=== PATIENT | female | born 1930 | race Caucasian/White ===

== ENCOUNTER 2016-09-13 13:20 | Inpatient (IN) | payer MEDICARE, OTHER ==
[2016-09-13] MEDS ORDERED: SODIUM CHLORIDE 0.9% 1,000 ML IV STA ×2 (13:27)
--- NOTE | 2016-09-13 13:38 | ED ---
General Adult HPI - General Stated complaint: ALTERED MENTAL STATUS Time Seen by Provider: 09/13/16 13:22 Source: RN notes reviewed, old records reviewed - History of Present Illness Initial comments: This is an 85-year-old female the ER for evaluation. Patient presents today for evaluation of other mental status, difficulty with speaking, dysphagia. Patient has no prior history of CVA. Symptoms started when she woke this morning, patient was seen by her caregiver John mckinney and then tried to reassess her situation. She still had difficulty with speaking, called family doctor sent her to the ER for evaluation. No trauma. Patient denies headache. No other neurological complaints - Related Data Home Medications Medication Instructions Recorded Confirmed Raloxifene [Evista] 60 mg PO DAILY 09/25/14 09/13/16 Alendronate Sodium [Alendronate 70 mg PO CONTRERAS 09/13/16 09/13/16 Sodium] Allergies Allergy/AdvReac Type Severity Reaction Status Date / Time monosodium glutamate [MSG] AdvReac Nausea & Verified 09/13/16 14:15 Vomiting Sulfa (Sulfonamide AdvReac Nausea Verified 09/13/16 14:15 Antibiotics) environmental Allergy Unknown Uncoded 09/26/14 10:54 Review of Systems ROS Statement: Those systems with pertinent positive or pertinent negative responses have been documented in the HPI. ROS Other: All systems not noted in ROS Statement are negative. Past Medical History Additional Past Medical History / Comment(s): Glaucoma; osteoporosis History of Any Multi-Drug Resistant Organisms: None Reported Additional Past Surgical History / Comment(s): cyst removed Past Psychological History: No Psychological Hx Reported Smoking Status: Former smoker Past Alcohol Use History: None Reported Past Drug Use History: None Reported General Exam - General Exam Comments Initial Comments: NIH of 2, some expressive aphasia General appearance: alert, in no apparent distress Head exam: Present: atraumatic, normocephalic, normal inspection Eye exam: Present: normal appearance, PERRL, EOMI. Absent: scleral icterus, conjunctival injection, periorbital swelling ENT exam: Present: normal exam, mucous membranes moist Neck exam: Present: normal inspection. Absent: tenderness, meningismus, lymphadenopathy Respiratory exam: Present: normal lung sounds bilaterally. Absent: respiratory distress, wheezes, rales, rhonchi, stridor Cardiovascular Exam: Present: regular rate, normal rhythm, normal heart sounds. Absent: systolic murmur, diastolic murmur, rubs, gallop, clicks GI/Abdominal exam: Present: soft, normal bowel sounds. Absent: distended, tenderness, guarding, rebound, rigid Extremities exam: Present: normal inspection, full ROM, normal capillary refill. Absent: tenderness, pedal edema, joint swelling, calf tenderness Back exam: Present: normal inspection Neurological exam: Present: alert, oriented X3, CN II-XII intact Psychiatric exam: Present: normal affect, normal mood Skin exam: Present: warm, dry, intact, normal color. Absent: rash Course Vital Signs 09/13/16 13:54 Temperature 98.9 F Pulse Rate 88 Respiratory 16 Rate Blood Pressure 164/85 O2 Sat by Pulse 92 L Oximetry - Reevaluation(s) Reevaluation #1: 09/13/16 15:26 Patient's neurological symptoms wax and wane, and a still 2, able to talk and expressed without difficulty but then some words that she suffers with Reevaluation #2: 09/13/16 15:27 Patient is not a candidate for TPA secondary to time EKG Findings - EKG Comments: EKG Findings:: EKG shows normal sinus rhythm rate of 90, DE 168, QRS 82, QTC 440 Medical Decision Making - Medical Decision Making A5 female ER for evaluation of altered mental status, expressive aphasia, CVA, NIH of 2, patient be admitted for neurological evaluation and treatment. - Lab Data Result diagrams: 09/13/16 14:00 09/13/16 14:00 Lab Results 09/13/16 09/13/16 09/13/16 Range/Units 13:42 14:00 14:00 WBC 6.2 (3.8-10.6) k/uL RBC 4.94 (3.80-5.40) m/uL Hgb 15.5 (11.4-16.0) gm/dL Hct 45.7 (34.0-46.0) % MCV 92.5 (80.0-100.0) fL MCH 31.5 (25.0-35.0) pg MCHC 34.0 (31.0-37.0) g/dL RDW 13.4 (11.5-15.5) % Plt Count 132 L (150-450) k/uL Neutrophils % 77 % Lymphocytes % 16 % Monocytes % 4 % Eosinophils % 1 % Basophils % 0 % Neutrophils # 4.8 (1.3-7.7) k/uL Lymphocytes # 1.0 (1.0-4.8) k/uL Monocytes # 0.3 (0-1.0) k/uL Eosinophils # 0.1 (0-0.7) k/uL Basophils # 0.0 (0-0.2) k/uL PT (9.0-12.0) sec INR (<1.2) APTT (22.0-30.0) sec Sodium (137-145) mmol/L Potassium (3.5-5.1) mmol/L Chloride (98-107) mmol/L Carbon Dioxide (22-30) mmol/L Anion Gap mmol/L BUN (7-17) mg/dL Creatinine (0.52-1.04) mg/dL Est GFR (MDRD) Af Amer (>60 ml/min/1.73 sqM) Est GFR (MDRD) Non-Af (>60 ml/min/1.73 sqM) Glucose (74-99) mg/dL Calcium (8.4-10.2) mg/dL Phosphorus (2.5-4.5) mg/dL Magnesium (1.6-2.3) mg/dL Total Bilirubin (0.2-1.3) mg/dL AST (14-36) U/L ALT (9-52) U/L Alkaline Phosphatase (38-126) U/L Total Creatine Kinase 60 (30-135) U/L CK-MB (CK-2) 1.5 (0.0-2.4) ng/mL CK-MB (CK-2) Rel Index 2.5 Troponin I <0.012 (0.000-0.034) ng/mL Total Protein (6.3-8.2) g/dL Albumin (3.5-5.0) g/dL Urine Color Colorless Urine Appearance Clear (Clear) Urine pH 7.5 (5.0-8.0) Ur Specific Stigler 1.001 (1.001-1.035) Urine Protein Negative (Negative) Urine Glucose (UA) Negative (Negative) Urine Ketones 1+ H (Negative) Urine Blood Small H (Negative) Urine Nitrite Negative (Negative) Urine Bilirubin Negative (Negative) Urine Urobilinogen <2.0 (<2.0) mg/dL Ur Leukocyte Esterase Negative (Negative) Urine RBC 1 (0-5) /hpf Urine WBC <1 (0-5) /hpf 09/13/16 09/13/16 Range/Units 14:00 14:00 WBC (3.8-10.6) k/uL RBC (3.80-5.40) m/uL Hgb (11.4-16.0) gm/dL Hct (34.0-46.0) % MCV (80.0-100.0) fL MCH (25.0-35.0) pg MCHC (31.0-37.0) g/dL RDW (11.5-15.5) % Plt Count (150-450) k/uL Neutrophils % % Lymphocytes % % Monocytes % % Eosinophils % % Basophils % % Neutrophils # (1.3-7.7) k/uL Lymphocytes # (1.0-4.8) k/uL Monocytes # (0-1.0) k/uL Eosinophils # (0-0.7) k/uL Basophils # (0-0.2) k/uL PT 10.8 (9.0-12.0) sec INR 1.1 (<1.2) APTT 23.1 (22.0-30.0) sec Sodium 141 (137-145) mmol/L Potassium 4.1 (3.5-5.1) mmol/L Chloride 102 (98-107) mmol/L Carbon Dioxide 32 H (22-30) mmol/L Anion Gap 7 mmol/L BUN 10 (7-17) mg/dL Creatinine 0.55 (0.52-1.04) mg/dL Est GFR (MDRD) Af Amer >60 (>60 ml/min/1.73 sqM) Est GFR (MDRD) Non-Af >60 (>60 ml/min/1.73 sqM) Glucose 98 (74-99) mg/dL Calcium 9.4 (8.4-10.2) mg/dL Phosphorus 3.1 (2.5-4.5) mg/dL Magnesium 1.7 (1.6-2.3) mg/dL Total Bilirubin 1.6 H (0.2-1.3) mg/dL AST 38 H (14-36) U/L ALT 37 (9-52) U/L Alkaline Phosphatase 33 L (38-126) U/L Total Creatine Kinase (30-135) U/L CK-MB (CK-2) (0.0-2.4) ng/mL CK-MB (CK-2) Rel Index Troponin I (0.000-0.034) ng/mL Total Protein 7.0 (6.3-8.2) g/dL Albumin 4.4 (3.5-5.0) g/dL Urine Color Urine Appearance (Clear) Urine pH (5.0-8.0) Ur Specific Stigler (1.001-1.035) Urine Protein (Negative) Urine Glucose (UA) (Negative) Urine Ketones (Negative) Urine Blood (Negative) Urine Nitrite (Negative) Urine Bilirubin (Negative) Urine Urobilinogen (<2.0) mg/dL Ur Leukocyte Esterase (Negative) Urine RBC (0-5) /hpf Urine WBC (0-5) /hpf - Radiology Data Radiology results: report reviewed (CT brain and chest x-ray negative for acute disease), image reviewed Disposition Clinical Impression: CVA (cerebral vascular accident) Disposition: ADMITTED IP TO THIS [facility] Condition: Serious Referrals: Armando Zheng MD [Primary Care Provider] - 1-2 days
[2016-09-13 14:05] LABS: Appearance,Urine Clear (Clear); Bilirubin,Urine Negative (Negative); Glucose,Urine (UA) Negative (Negative); Ketones,Urine 1+ (Negative); Leukocyte Esterase,Urine Negative (Negative); Nitrite,Urine Negative (Negative); PH, Urine 7.5 (5.0-8.0); Particle Count 218; Protein,Urine Negative (Negative); RBC,Urine 1 /hpf (0-5); Specific Gravity,Urine 1.001 (1.001-1.035); UA Billing (MACRO vs. MICRO) MICRO; Urobilinogen,Urine <2.0 mg/dL (<2.0); WBC,Urine <1 /hpf (0-5)
[2016-09-13 14:11] LABS: Basophils % (A) 0 %; CH 30.5; CHCM 33.1; Eosinophils # (A) 0.1 k/uL (0-0.7); Eosinophils % (A) 1 %; HCT 45.7 % (34.0-46.0); HDW 2.43; HGB 15.5 gm/dL (11.4-16.0); Luc % (Auto) 2; Lymphocytes % (A) 16 %; MCH 31.5 pg (25.0-35.0); MCV 92.5 fL (80.0-100.0); Mean Platelet Volume 7.5; Monocytes # (A) 0.3 k/uL (0-1.0); Monocytes % (A) 4 %; Neutrophils # (A) 4.8 k/uL (1.3-7.7); Neutrophils % (A) 77 %; RBC 4.94 m/uL (3.80-5.40); RDW 13.4 % (11.5-15.5); WBC 6.2 k/uL (3.8-10.6); WBC (Perox) 6.19
[2016-09-13 14:26] LABS: INR 1.1 (<1.2); Partial Thromboplastin Time 23.1 sec (22.0-30.0); Prothrombin Time 10.8 sec (9.0-12.0)
[2016-09-13 14:30] LABS: ALT 37 U/L (9-52); AST 38 U/L (14-36); Alkaline Phosphatase 33 U/L (38-126); Anion Gap 7 mmol/L; Blood Urea Nitrogen 10 mg/dL (7-17); Calcium 9.4 mg/dL (8.4-10.2); Carbon Dioxide 32 mmol/L (22-30); Chloride 102 mmol/L (98-107); Glucose 98 mg/dL (74-99); Magnesium 1.7 mg/dL (1.6-2.3); Non-African American GFR(MDRD) >60 (>60 ml/min/1.73 sqM); Phosphorous 3.1 mg/dL (2.5-4.5); Potassium 4.1 mmol/L (3.5-5.1); Sodium 141 mmol/L (137-145); Total Bilirubin 1.6 mg/dL (0.2-1.3)
[2016-09-13 14:34] LABS: Creatine Kinase 60 U/L (30-135)
[2016-09-13 14:47] LABS: Creatine Kinase MB 1.5 ng/mL (0.0-2.4); Troponin I <0.012 ng/mL (0.000-0.034)
--- NOTE | 2016-09-13 14:58 | XR ---
EXAMINATION TYPE: XR chest 2V DATE OF EXAM: 09/13/2016 COMPARISON: NONE HISTORY: Shortness of breath TECHNIQUE: Frontal and lateral views of the chest are obtained. FINDINGS: Scattered senescent parenchymal changes noted. Hyperinflation compatible with COPD. No evidence for infiltrate. No evidence for atelectasis. Heart size is stable. Mediastinal structures are stable and grossly unremarkable. No evidence for hilar prominence. Degenerative changes dorsal spine. IMPRESSION: 1. No evidence for acute pulmonary disease.
[2016-09-13] MEDS ORDERED: ASPIRIN 325 MG TAB PO STA (15:00)
--- NOTE | 2016-09-13 16:11 | CT ---
EXAMINATION TYPE: CT brain wo con DATE OF EXAM: 09/13/2016 HISTORY: LOTT and difficulty speaking. CT DLP: 998.9 mGycm. Automated Exposure Control for Dose Reduction was Utilized. TECHNIQUE: CT scan of the head is performed without contrast. COMPARISON: None. FINDINGS: There is no acute intracranial hemorrhage or midline shift identified. There is diffuse v entricular and sulcal prominence consistent with diffuse age-related cerebral atrophy. There is low- attenuation in the periventricular white matter consistent with chronic small vessel ischemic change. The globes are intact and the visualized sinuses are clear. IMPRESSION: No acute intracranial hemorrhage or midline shift. There is mild to moderate diffuse ag e-related cerebral atrophy and chronic small vessel ischemic change noted. If clinical concern for acute stroke persists further investigation with MRI study may be warranted.
--- NOTE | 2016-09-13 16:41 | US ---
EXAMINATION TYPE: US carotid duplex BILAT DATE OF EXAM: 09/13/2016 COMPARISON: NONE CLINICAL HISTORY: Stenosis. Altered mental status EXAM MEASUREMENTS: RIGHT: Peak Systolic Velocity (PSV) cm/sec ----- Right CCA: 85.7 ----- Right ICA: 93.1 ----- Right ECA: 102.1 ICA/CCA ratio: 1.1 RIGHT: End Diastole cm/sec ----- Right CCA: 11.5 ----- Right ICA: 19.3 ----- Right ECA: 6.3 LEFT: Peak Systolic Velocity (PSV) cm/sec ----- Left CCA: 85.6 ----- Left ICA: 120.0 ----- Left ECA: 169.4 ICA/CCA ratio: 1.4 LEFT: End Diastole cm/sec ----- Left CCA: 8.7 ----- Left ICA: 23.5 ----- Left ECA: 9.1 VERTEBRALS (direction of flow): Right Vertebral: Antegrade Left Vertebral: Antegrade Mild plaque noted bilaterally. Increased velocities left ECA IMPRESSION: There is antegrade flow in the vertebral arteries. The images and measurements suggest 4 0-50% stenosis in both internal carotid arteries. Criteria for Assigning % of Stenosis / Diameter reduction (Estimation based on the indirect measurements of the internal carotid artery velocities (ICA PSV). 1. Normal (no stenosis)=ICA PSV < 125 cm/s: ratio < 2.0: ICA EDV<40 cm/s. 2. Less than 50% stenosis=ICA PSV < 125 cm/s: ratio < 2.0: ICA EDV<40 cm/s. 3. 50 to 69% stenosis=ICA PSV of 125 to 230 cm/s: ration 2.0 ? 4.0: ICA EDV 40-100 cm/s. 4. Greater than 70% stenosis to near occlusion= ICA PSV > 230 cm/s: ratio > 4.0: ICA EDV > 100 cm/s. 5. Near occlusion= ICA PSV velocities may be low or undetectable: variable ratio and ICA EDV. 6. Total occlusion=unable to detect flow.
[2016-09-13] MEDS ORDERED: ENALAPRILAT 1.25 MG/ML 1 ML VIAL IVP PRN (18:24)
--- NOTE | 2016-09-13 18:39 | P.HPIM ---
History of Present Illness H&P Date: 09/13/16 Chief Complaint: CVA/TIA, expression aphasia, elevated blood pressure, hyperlipidemia, sever 85-year-old female one of my office patient of known for last 15 years with known to have advanced osteoporosis severe osteoarthritis and chronic lower back pain severe debilitated from her back condition for the last 20 years could not tolerate many osteoporosis age and the past has been doing well on Fosamax and calcium with vitamin D. Patient is under a lot of stress lately still independent and [facility] with [facility] other neighbor she had a main entrance on. Everybody's working to create and build ramp for the building except 1 neighbor 1 to do more patient has been under a lot of stress through this. Patient apparently has loss her caregiver and higher new one was in today for the first time to see her patient had extremely difficult time expressing herself and finding the right word was slightly but confused and had significant change mental status the caregiver with the current finding decided to bring her to demurs department at [facility] were was seen and evaluated continue to have significant expression aphasia with the current problem was diagnosed with CVA/ TIA decided to admit patient to the hospital CAT scan of the brain showed small vessel disease only her blood pressure was slightly bit elevated initially but no other finding was found. No metabolic problem including UTI or pneumonitis no hypoxia or anything to explain that change mental status. Review of Systems Constitutional: Reports anorexia, Reports chronic pain, Reports daytime sleepiness, Reports fatigue, Reports lethargy, Reports poor appetite, Reports weakness, Reports weight loss, Denies as per HPI, Denies chills, Denies chronic headaches, Denies fever, Denies malaise, Denies night sweats, Denies sweats, Denies weight gain Eyes: bilateral as per HPI Ears: bilateral: decreased hearing Ears, nose, mouth and throat: Reports ant. neck pain, Reports nasal congestion, Reports sinus pain, Reports sinus pressure, Denies as per HPI, Denies bleeding gums, Denies dental pain, Denies dysphagia, Denies epistaxis, Denies headache, Denies hoarseness, Denies mouth pain, Denies nasal discharge, Denies neck fullness/pressure, Denies neck lump, Denies nose pain, Denies odynophagia, Denies post-nasal drip, Denies swelling in mouth, Denies swelling in throat, Denies sore throat, Denies vertigo, Denies voice changes Cardiovascular: Reports dyspnea on exertion, Reports edema, Reports high blood pressure, Reports orthopnea, Reports paroxysmal nocturnal dyspnea, Denies as per HPI, Denies chest pain, Denies claudication, Denies decreased exercise tolerance, Denies irregular heart beat, Denies leg edema, Denies lightheadedness , Denies palpitations, Denies phlebitis, Denies rapid heart beat, Denies shortness of breath, Denies syncope Respiratory: Reports congestion, Reports dyspnea, Reports wheezing, Denies as per HPI, Denies cough, Denies cough with sputum, Denies excessive sputum, Denies hemoptysis, Denies home oxygen, Denies pain, Denies pain on inspiration, Denies pleurisy, Denies respiratory infections, Denies sleep apnea, Denies snoring Gastrointestinal: Reports bloating, Reports early satiety, Reports indigestion, Reports nausea, Denies as per HPI, Denies abdominal pain, Denies belching, Denies BRBPR, Denies change in bowel habits, Denies coffee ground emesis, Denies constipation, Denies diarrhea, Denies dyspepsia, Denies excessive gas, Denies heartburn, Denies hematemesis, Denies hematochezia, Denies jaundice, Denies lactose intolerance, Denies loss of appetite, Denies melena, Denies vomiting Genitourinary: Reports stress incontinence, Denies as per HPI, Denies abnormal vaginal bleeding, Denies decreased libido, Denies difficulty conceiving, Denies difficulty voiding, Denies dysmenorrhea, Denies dyspareunia, Denies dysuria, Denies flank pain, Denies genital sores, Denies hematuria, Denies hot flashes, Denies incomplete emptying, Denies kidney stones, Denies menorrhagia, Denies mixed incontinence, Denies nocturia, Denies pelvic pain, Denies post void dribbling, Denies , Denies prolapse symptoms, Denies urge incontinence, Denies urgency, Denies urinary frequency, Denies vaginal discharge, Denies vaginal dryness, Denies vaginal itching, Denies vaginal odor Musculoskeletal: Reports gait dysfunction, Reports leg numbness/tingling, Reports limitation of motion, Reports loss of height, Reports low back pain, Reports morning stiffness, Reports neck pain, Reports neck stiffness, Denies as per HPI, Denies arm numbness/tingling, Denies atrophy, Denies fractures, Denies frequent falls, Denies hot joints, Denies muscle cramps, Denies muscle weakness , Denies myalgias, Denies prior amputations, Denies redness of joints, Denies shooting arm pain, Denies shooting leg pain Musculoskeletal: bilateral: ankle pain Integumentary: Denies as per HPI, Denies acne, Denies boils, Denies brittle nails, Denies change in hair/nails, Denies color changes, Denies darkening of skin, Denies depigmentation, Denies dryness, Denies foot/leg ulcers, Denies growths, Denies hirsutism, Denies lesions, Denies onychomycosis, Denies pruritus , Denies rash, Denies sores, Denies striae, Denies unusual bruising, Denies wounds Neurological: Reports aphasia, Reports ataxia, Reports change in mentation, Reports gait dysfunction, Reports paresthesias, Reports spasticity, Reports weakness, Denies as per HPI, Denies balance difficulties, Denies burning pain, Denies change in smell/taste, Denies change in speech, Denies confusion, Denies convulsions, Denies double vision, Denies head injury, Denies headaches, Denies hearing difficulties, Denies lack of coordination, Denies loss of vision, Denies memory loss, Denies migraines, Denies motor disturbance, Denies numbness , Denies paralysis, Denies seizures, Denies sensory deficit, Denies syncope, Denies tic, Denies tingling, Denies transient paralysis, Denies tremors, Denies vertigo, Denies visual changes Psychiatric: Reports anhedonia, Reports anxiety, Reports depression, Reports sadness/tearfulness, Denies as per HPI, Denies anxiety attacks, Denies change in appetite, Denies change in libido, Denies change in sleep habits, Denies confusion, Denies difficulty concentrating, Denies disorientation, Denies hallucinations, Denies hopelessness, Denies hypersomnia, Denies insomnia, Denies irritability, Denies memory loss, Denies mood swings, Denies paranoia, Denies sleep disturbances, Denies suicidal ideation Endocrine: Reports cold intolerance, Reports fatigue, Reports heat intolerance, Denies as per HPI, Denies deepening of the voice, Denies excessive sweating, Denies excessive thirst, Denies flushing, Denies high blood sugars, Denies increase in ring/shoe/hat size, Denies low blood sugars, Denies nocturia, Denies palpitations, Denies polydipsia, Denies polyphagia, Denies polyuria, Denies proptosis, Denies recent glucocorticoid use, Denies thyroid mass, Denies weight change Hematologic/Lymphatic: Reports easy bruising, Denies as per HPI, Denies easy bleeding, Denies lymphadenopathy, Denies lymphedema, Denies thrombophilia Allergic/Immunologic: Reports allergic rhinitis, Denies as per HPI, Denies anaphylaxis, Denies angioedema, Denies gluten intolerance, Denies persistent infections, Denies seasonal allergies, Denies urticaria, Denies wheezing Past Medical History Past Medical History: Asthma, Cancer Additional Past Medical History / Comment(s): Glaucoma javier eyes; osteoporosis and has "conpression fx", had skin cancer (end of nose ), scoliosis, javier inguinal hernia's History of Any Multi-Drug Resistant Organisms: None Reported Additional Past Surgical History / Comment(s): pilondial cyst removed, 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 javier cataracts . Past Anesthesia/Blood Transfusion Reactions: No Reported Reaction Additional Past Anesthesia/Blood Transfusion Reaction / Comment(s): "mildly clausterphobic" Past Psychological History: No Psychological Hx Reported Additional Psychological History / Comment(s): pt lives alone in condo-no steps to navigate. uses a walker when up. 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 Smoking Status: Former smoker Past Alcohol Use History: Heavy Additional Past Alcohol Use History / Comment(s): started smoking at age 15(1946 ) and quit in 1968. smoked 1/2 ppd. quit drinking 1979 Past Drug Use History: None Reported - Past Family History Mother Family Medical History: Cancer Additional Family Medical History / Comment(s): cervical cancer Father Family Medical History: Coronary Artery Disease (CAD), Myocardial Infarction (AL ) Additional Family Medical History / Comment(s): x3 mi's Medications and Allergies Home Medications Medication Instructions Recorded Confirmed Type Raloxifene [Evista] 60 mg PO DAILY 09/25/14 09/13/16 History Alendronate Sodium [Alendronate 70 mg PO CONTRERAS 09/13/16 09/13/16 History Sodium] Allergies Allergy/AdvReac Type Severity Reaction Status Date / Time monosodium glutamate [MSG] AdvReac Nausea & Verified 09/13/16 14:15 Vomiting Sulfa (Sulfonamide AdvReac Nausea Verified 09/13/16 14:15 Antibiotics) environmental Allergy Unknown Uncoded 09/26/14 10:54 Physical Exam Vitals: Vital Signs Temp Pulse Resp BP Pulse Ox 09/13/16 15:54 81 16 128/78 98 09/13/16 13:54 98.9 F 88 16 164/85 92 L Intake and Output 09/13/16 09/13/16 09/13/16 06:59 14:59 22:59 Intake Total 240 Balance 240 Intake: Oral 240 Other: Weight 45.359 kg Patient Weight 09/14/16 06:59 Weight 45.359 kg - Constitutional General appearance: no average body habitus, cooperative, disheveled, no mild distress, no morbidly obese, no acute distress, no obese, no severe distress, no thin - EENT Eyes: abnormal pupil, no anicteric sclerae, no disc margins sharp, no edentulous , no EOMI, no PERRLA, no fundus normal, no photophobia, no dentition normal, no poor dentition, no ptosis, no scleral icterus, normal appearance ENT: hard of hearing, no hearing grossly normal, no NA/AT, normal oropharynx, no other, no pharyngeal erythema, no thrush, no tonsillar exudates, no tonsillar swelling Ears: bilateral: normal - Neck Neck: no lymphadenopathy, normal ROM, no other, no rigidity, no stridor, no thyromegaly Carotids: bilateral: upstroke normal Thyroid: bilateral: normal size - Respiratory Respiratory: bilateral: CTA, diminished - Cardiovascular Rhythm: regular Heart sounds: normal: S1, S2 Abnormal Heart Sounds: systolic murmur - Gastrointestinal General gastrointestinal: no absent bowel sounds, decreased bowel sounds, no distended, no hepatomegaly, no hyperactive bowel sounds, no normal bowel sounds , no organomegaly, no rigid, no scaphoid, soft, no splenomegaly, no tenderness, no umbilical hernia, no ventral hernia - Integumentary Integumentary: no calor, no cellulitis, no cyanotic, no decreased turgor, no flushed, no jaundiced, normal, normal turgor, pale, rash, no ulcer - Neurologic Neurologic: CNII-XII intact - Musculoskeletal Musculoskeletal: generalized weakness, strength equal bilaterally, no right sided weakness, no left sided weakness - Psychiatric Psychiatric: A&O x's 3, appropriate affect Results CBC & Chem 7: 09/13/16 14:00 09/13/16 14:00 Labs: Abnormal Lab Results - Last 24 Hours (Table) 09/13/16 09/13/16 09/13/16 Range/Units 13:42 14:00 14:00 Plt Count 132 L (150-450) k/uL Carbon Dioxide 32 H (22-30) mmol/L Total Bilirubin 1.6 H (0.2-1.3) mg/dL AST 38 H (14-36) U/L Alkaline Phosphatase 33 L (38-126) U/L Urine Ketones 1+ H (Negative) Urine Blood Small H (Negative) Assessment and Plan Plan: 1 TIA/CVA: Patient had significant aphasia which change mental status with no focalization or side weakness of the time. Patient will have full study and testing including echo carotid Holter monitor patient will be seen urology will continue aspirin for now and depending on her testing might add the Plavix to it unless there is a finding of shunting between the right than the left side of the heart and or A. fib found she might need an anticoagulation. 2 change of mental status: This is considered to be CVA related unless proven otherwise with finding consistent with metabolic problem can explain the change mental status. Continue to watch her mentation will do speech and occupational therapy for it. 3 elevated blood pressure: Patient will be on Vasotec 2.5 mg IV every 6 hour for systolic above 160. 4 advance osteoporosis: Patient has been on Fosamax calcium and vitamin D continue both medication. 5 GERD/GI prophylaxis: Patient will be on Pepcid 20 mg daily. 6 DVT prophylaxis: Patient will be on heparin 5000 units subcutaneous twice a day combined with Venodyne boots and knee-high JARROD hose. 7 debility: Not been able to ambulate and walk combination of her TIA along with severe advanced scoliosis and osteoporosis. PTOT will be order and advance activity gradually. 8 thrombocytopenia: Very mild repeat another CBC tomorrow and this is might be one of the consideration for starting antiplatelet agent such as Plavix if the numbers going down she cannot be on Plavix. 9 Gilbert"s syndrome: Elevated bilirubin with slightly elevated liver function tests otherwise patient is doing well continue conservative management no need for any testing on it. CODE STATUS: DO NOT RESUSCITATE. Expectation from this admission: Patient be in the hospital for 1-2 nights.
--- NOTE | 2016-09-13 20:29 | P.CNNES ---
History of Present Illness Consult date: 09/13/16 Reason for Consult: Patient admitted with possible TIA versus stroke. History of Present Illness: Belle Huddleston is a 85-year-old right-handed white female was in her usual state of health until 7 AM this morning. Patient states she awoke as usual and was getting up to get started for the morning when she noticed that she was having difficulty getting her words out. She was trying to talk and noted that she was unable to pronounce words and was having word finding difficulties. The symptoms came on at 7 AM and she thought hopefully things would improve with time. She was able to get up and get to the bathroom but did continue to have difficulty with her speech and language. She was concerned as she was aware of conditions of TIA and stroke. She waited till 9 AM when her caregiver arrived at the home to assist her and noted right away that she was having evidence for aphasia and word finding difficulties. The caregiver immediately called EMS. When EMS arrived she seemed to still have some difficulty and hesitation in her speech. She was taken by EMS to the emergency room at [facility] ER where she was further evaluated. She was seen by Dr. Weston. She did seem to be more alert by the time she was evaluated in the ER. Her NIH stroke scale was noted to be 2.0. She was not a candidate for TPA. She was sent for a computed tomography scan of the brain which revealed no acute intracranial hemorrhage or midline shift. There was mild to moderate diffuse age-related cerebral atrophy and chronic small vessel ischemic changes noted. The patient was essentially admitted to the hospital. By this evening she has noted improvement with her speech. She is able to talk on the telephone without having any hesitation. She was sent for a carotid Doppler ultrasound which revealed 40-50% stenosis of both internal carotid arteries. The patient denies any previous history of TIA or stroke. She does not take aspirin on any regular basis at home. We have recommended that she be placed on one baby aspirin 81 mg daily for secondary stroke prevention at this time. The patient estimates that the total time of her speech impairment was over 2 hours in duration. She did not experience any weakness on the arms or legs. She did not have any facial droop during this episode. [facility] She has been able to continue to stay independently in this condo. She does mention she has been under great deal of stress recently which may also have contributed to this acute event. We have recommended the patient be considered for MRI of the brain for further evaluation. In the meantime she is to remain on aspirin daily for secondary stroke prevention. If MRI does reveal evidence of acute stroke she may require use of Plavix. Would also rule out any possibility of paroxysmal atrial fibrillation in this patient. We will continue to monitor her closely during this admission. Patient states she feels her speech is back to normal at this time. She is now been admitted and neurology has been consulted for further evaluation and recommendations. Review of Systems Constitutional: Denies chills, Denies fever Eyes: denies blurred vision, denies pain Ears, nose, mouth and throat: Denies headache, Denies sore throat Cardiovascular: Denies chest pain, Denies shortness of breath Respiratory: Denies cough Gastrointestinal: Denies abdominal pain, Denies diarrhea, Denies nausea, Denies vomiting Genitourinary: Denies dysuria, Denies hematuria Musculoskeletal: Denies myalgias Integumentary: Denies pruritus, Denies rash Neurological: Reports aphasia, Reports change in speech, Reports confusion, Denies numbness, Denies weakness Psychiatric: Denies anxiety, Denies depression Endocrine: Denies fatigue, Denies weight change Past Medical History Past Medical History: Asthma, Cancer Additional Past Medical History / Comment(s): Glaucoma javier eyes; osteoporosis and has "conpression fx", had skin cancer (end of nose ), scoliosis, javier inguinal hernia's History of Any Multi-Drug Resistant Organisms: None Reported Additional Past Surgical History / Comment(s): pilondial cyst removed, 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 javier cataracts . Past Anesthesia/Blood Transfusion Reactions: No Reported Reaction Additional Past Anesthesia/Blood Transfusion Reaction / Comment(s): "mildly clausterphobic" Past Psychological History: No Psychological Hx Reported Additional Psychological History / Comment(s): pt lives alone in condo-no steps to navigate. uses a walker when up. has a life care planner. Smoking Status: Former smoker Past Alcohol Use History: Heavy Additional Past Alcohol Use History / Comment(s): started smoking at age 15(1946 ) and quit in 1968. smoked 1/2 ppd. quit drinking 1979 Past Drug Use History: None Reported - Past Family History Mother Family Medical History: Cancer Additional Family Medical History / Comment(s): cervical cancer Father Family Medical History: Coronary Artery Disease (CAD), Myocardial Infarction ([place] ) Additional Family Medical History / Comment(s): x3 mi's Medications and Allergies Home Medications Medication Instructions Recorded Confirmed Type Raloxifene [Evista] 60 mg PO DAILY 09/25/14 09/13/16 History Alendronate Sodium [Alendronate 70 mg PO CONTRERAS 09/13/16 09/13/16 History Sodium] Allergies Allergy/AdvReac Type Severity Reaction Status Date / Time monosodium glutamate [MSG] AdvReac Nausea & Verified 09/13/16 14:15 Vomiting Sulfa (Sulfonamide AdvReac Nausea Verified 09/13/16 14:15 Antibiotics) environmental Allergy Unknown Uncoded 09/26/14 10:54 Physical Examination - Vital Signs Vital Signs: Vital Signs Temp Pulse Resp BP Pulse Ox 09/13/16 15:54 81 16 128/78 98 09/13/16 13:54 98.9 F 88 16 164/85 92 L Intake and Output 09/13/16 09/13/16 09/13/16 06:59 14:59 22:59 Intake Total 240 Balance 240 Intake: Oral 240 Other: Weight 45.359 kg Patient Weight 09/14/16 06:59 Weight 45.359 kg - Constitutional General appearance: average body habitus, cooperative - EENT EENT: PERRL, mucous membranes moist - Respiratory Respiratory: lungs clear, normal breath sounds - Cardiovascular Cardiovascular: regular rate, normal S1, normal S2 Extremities: no peripheral edema bilaterally - Gastrointestinal Gastrointestinal: normoactive bowel sounds - Integumentary Integumentary: normal - Neurologic Cranial nerve examination: PERRL, EOMI, VFF, V1/V2/V3 grossly intact, face symmetric, tongue midline, intact gag reflex, intact corneal reflex, normal palatal elevation Speech examination: intact Sensorimotor examination: intact Detailed motor examination: grossly full strength in all extremities Motor examination - right side: 4/5: biceps, triceps, wrist flexion, wrist extension, actuarial analyst, hip flexors, knee extensors, dorsiflexion, toe extension (EHL) , plantarflexion Motor examination - left side: 4/5: biceps, triceps, wrist flexion, wrist extension, actuarial analyst, hip flexors, knee extensors, dorsiflexion, toe extension (EHL) , plantarflexion Detailed sensory examination: intact Spine examination: lumbar: scoliosis Reflex and gait examination: intact Reflexes: 1+: ankle, bicep, knee, tricep - Musculoskeletal Musculoskeletal: no pain - Psychiatric Psychiatric: mood/affect appropriate, cooperative Results - Laboratory Findings CBC and BMP: 09/13/16 14:00 09/13/16 14:00 Abnormal Lab Findings: Abnormal Labs 09/13/16 09/13/16 09/13/16 13:42 14:00 14:00 Plt Count 132 L Carbon Dioxide 32 H Total Bilirubin 1.6 H AST 38 H Alkaline Phosphatase 33 L Urine Ketones 1+ H Urine Blood Small H Assessment and Plan (1) TIA (transient ischemic attack) Status: Acute Code(s): G45.9 - TRANSIENT CEREBRAL ISCHEMIC ATTACK, UNSPECIFIED (2) CVA (cerebral vascular accident) Status: Acute Code(s): I63.9 - CEREBRAL INFARCTION, UNSPECIFIED (3) Osteoporosis Status: Acute Code(s): M81.0 - AGE-RELATED OSTEOPOROSIS W/O CURRENT PATHOLOGICAL FRACTURE (4) Thrombocytopenia Status: Acute Code(s): D69.6 - THROMBOCYTOPENIA, UNSPECIFIED Plan: This patient is a 85-year-old female admitted with episode of expressive aphasia and word finding difficulties. Entire episode lasted over 2 hours in duration and gradually resolved. She was brought to the emergency room for further evaluation at [facility]. She was seen in the ER by Dr. Weston. Her NIH stroke scale was 2.0. She was not a TPA candidate. She was admitted to Hospital. Computed tomography scan of the brain failed to reveal evidence of acute stroke or hemorrhage. There was mild to moderate diffuse age-related atrophy. Her neurological examination at this time is nonfocal. Clinical history is suggesting probable left hemispheric TIA versus stroke. We have recommended MRI of the brain for further evaluation. Patient is to remain on aspirin therapy at this time with close monitoring of her platelet counts. Depending on MRI further recommendations will be given. Her overall prognosis at this time remains guarded. Time with Patient: Greater than 30
[2016-09-13 20:35] VITALS: RESP 16
[2016-09-13] MEDS: SODIUM CHLORIDE 0.9% 1,000 ML IV SCH (20:40)
[2016-09-13] MEDS: HEPARIN SODIUM,PORCINE 5,000 UNIT/ML 1 ML VIAL SQ SCH (20:42)
[2016-09-14] MEDS: SODIUM CHLORIDE 0.9% 1,000 ML IV SCH ×2 (02:32→15:38)
[2016-09-14 03:07] LABS: Cholesterol 161 mg/dL (<200); HDL Cholesterol 95 mg/dL (40-60); Triglycerides 42 mg/dL (<150)
[2016-09-14] MEDS ORDERED: DIAZEPAM 2 MG TAB PO STA (07:44)
[2016-09-14] MEDS: HEPARIN SODIUM,PORCINE 5,000 UNIT/ML 1 ML VIAL SQ SCH (08:08)
[2016-09-14] MEDS ORDERED: FAMOTIDINE 20 MG TAB PO SCH ×2 (09:00)
[2016-09-14] MEDS ORDERED: ASPIRIN 325 MG TAB PO SCH (09:00)
--- NOTE | 2016-09-14 10:07 | ECHOF ---
Referral Reason:Thrombus MEASUREMENTS -------- HEIGHT: 152.4 cm WEIGHT: 45.4 kg BP: 164/85 RVIDd: 2.7 cm (< 3.3) IVSd: 1.3 cm (0.6 - 1.1) LVIDd: 2.8 cm (3.9 - 5.3) LVPWd: 1.3 cm (0.6 - 1.1) IVSs: 1.5 cm LVIDs: 2.2 cm LVPWs: 1.6 cm LAESV Index (A-L): 14.81 ml/m Ao Diam: 3.0 cm (2.0 - 3.7) AV Cusp: 1.7 cm (1.5 - 2.6) LA Diam: 2.4 cm (2.7 - 3.8) MV EXCURSION: 9.870 mm (> 18.000) MV EF SLOPE: 58 mm/s (70 - 150) EPSS: 0.8 cm MV E Hong: 0.58 m/s MV DecT: 224 ms MV A Hong: 1.07 m/s MV E/A Ratio: 0.54 RAP: 5.00 mmHg RVSP: 12.04 mmHg FINDINGS -------- Sinus rhythm. This was a technically adequate study. The left ventricular size is normal. There is mild concentric left ventricular hypertrophy. Overall left ventricular systolic function is normal with, an EF between 55 - 60 %. The right ventricle is normal in size and function. Normal LA size by volume 22+/-6 ml/m2. The right atrium is normal in size. The aortic valve is trileaflet, and appears structurally normal. No aortic stenosis or regurgitation. Mild mitral annular calcification present. There is trace to mild mitral regurgitation. Trace tricuspid regurgitation present. There is no evidence of pulmonary hypertension. The right ventricular systolic pressure, as measured by Doppler, is 12.04mmHg. Trace/mild (physiologic) pulmonic regurgitation. The aortic root size is normal. IVC Not well visulized. There is no pericardial effusion. CONCLUSIONS -------- 1. Sinus rhythm. 2. There is no evidence of pulmonary hypertension. 3. Trace/mild (physiologic) pulmonic regurgitation. 4. The aortic root size is normal. 5. IVC Not well visulized. 6. There is no pericardial effusion. 7. This was a technically adequate study. 8. There is mild concentric left ventricular hypertrophy. 9. Overall left ventricular systolic function is normal with, an EF between 55 - 60 %. 10. Normal LA size by volume 22+/-6 ml/m2. 11. The aortic valve is trileaflet, and appears structurally normal. No aortic stenosis or regurgitation. 12. Mild mitral annular calcification present. 13. There is trace to mild mitral regurgitation. 14. Trace tricuspid regurgitation present. OPENER TENDER: Justin Miramontes RDCS
[2016-09-14] MEDS ORDERED: RX INFO: IV CONTRAST WAS GIVEN 1 EACH MISC MISCELLANE PRN (11:49)
--- NOTE | 2016-09-14 15:01 | CT ---
EXAMINATION TYPE: CT brain w con DATE OF EXAM: 09/14/2016 COMPARISON: NONE HISTORY: TIA vs CVA, difficulty forming words CT DLP: 1049.5 mGycm Automated exposure control for dose reduction was used. CONTRAST: CT scan of the head is performed without and with IV Contrast, patient injected with 100 mL of Omnipa que 300. FINDINGS: There is no abnormal enhancing mass or midline shift identified. The ventricles and sulci are modera tely enlarged. The globes are intact and the visualized sinuses are clear. IMPRESSION: Unremarkable contrast enhanced head CT exam.
[2016-09-14 15:24] VITALS: BP 147/72; PULSE 76; TEMP 98.3
--- NOTE | 2016-09-14 17:25 | P.PN ---
Subjective Belle Huddleston is a 85-year-old right-handed white female who was seen yesterday for evaluation of TIA versus stroke. Patient presented with episode of expressive aphasia and difficulty with speech and language that lasted over 2 hours in duration. She was brought into the emergency room yesterday and subsequently admitted to Hospital. Her initial computed tomography scan of the brain was reported negative for any evidence of acute stroke. Her speech did improve yesterday when she was seen in neurology consultation. We've recommended an MRI of the brain to be done today but patient was unable to complete this study as she is unable to lay flat on the MRI platform. MRI was canceled. She was sent for a computed tomography scan of the brain with contrast today as follow-up. The CAT scan is reported unremarkable with no abnormal enhancing contrast lesions. We reviewed the results of the CAT scan today with the patient. She has had no further recurrence of expressive aphasia. She is being considered for discharge home later today. She may follow-up in the outpatient neurology clinic in 3-4 weeks. Her overall prognosis at this time remains guarded. We reviewed all of her other tests that were done yesterday with the patient in detail. We recommend she continue on Plavix and aspirin for secondary stroke prevention. She may follow-up in the outpatient neurology clinic in 3-4 weeks. Objective - Vital Signs Vital signs: Vital Signs Temp 98.3 F 09/14/16 12:00 Pulse 76 09/14/16 12:00 Resp 16 09/14/16 12:00 BP 147/72 09/14/16 12:00 Pulse Ox 95 09/14/16 12:00 Intake & Output 09/13/16 09/14/16 09/14/16 18:59 06:59 18:59 Intake Total 240 1600 Output Total 550 400 Balance 240 1050 -400 Weight 45.359 kg 46 kg Intake: IV 1600 Sodium Chloride 0.9% 1, 1600 000 ml @ 100 mls/hr IV . Q10H [facility] Rx#:[id number] Oral 240 Output: Urine 550 400 Other: Voiding Method Bedside Commode Bedside Commode # Voids 1 # Bowel Movements 0 - Exam Physical examination: PHYSICAL EXAMINATION: Patient is resting comfortably in bed. VITAL SIGNS: Blood pressure is [147/72]. Heart rate is [76]. Respiration is [16] . Temperature is [98.3]. HEENT: Head is atraumatic, neck is supple, there were no carotid bruits. CHEST: Lungs are clear to auscultation and percussion. CARDIAC: S1, S2 normal rate and rhythm. There is no murmur. ABDOMEN: Soft and nontender. Bowel sounds are present. EXTREMITIES: There is no pedal edema. Peripheral pulses are present. Neurological examination: Patient has a nonfocal neurological examination today. Her speech is fluent with no evidence of any aphasia. - Labs CBC & Chem 7: 09/13/16 14:00 09/13/16 14:00 Labs: Abnormal Lab Results - Last 24 Hours (Table) 09/14/16 Range/Units 02:00 HDL Cholesterol 95 H (40-60) mg/dL Microbiology - Last 24 Hours (Table) 09/13/16 13:42 Urine Culture - Preliminary Urine,Clean Catch Assessment and Plan (1) TIA (transient ischemic attack) Status: Acute Code(s): G45.9 - TRANSIENT CEREBRAL ISCHEMIC ATTACK, UNSPECIFIED (2) CVA (cerebral vascular accident) Status: Acute Code(s): I63.9 - CEREBRAL INFARCTION, UNSPECIFIED (3) Osteoporosis Status: Acute Code(s): M81.0 - AGE-RELATED OSTEOPOROSIS W/O CURRENT PATHOLOGICAL FRACTURE (4) Thrombocytopenia Status: Acute Code(s): D69.6 - THROMBOCYTOPENIA, UNSPECIFIED Plan: This patient is a 85-year-old female who is being evaluated for episode of expressive aphasia and possible TIA. She underwent a CAT scan of the brain yesterday which was reported negative for any acute changes. She was seen in neurology consultation yesterday and we did recommend an MRI of the brain for further evaluation. She was unable to have MRI today as she could not lay flat on the exam table for the MRI. She was sent for a computed tomography scan of the brain with contrast today as follow-up. The CAT scan is reported unremarkable contrast enhanced computed tomography scan of the brain. We reviewed the results today with the patient at bedside. She is to continue on Plavix and aspirin for secondary stroke prevention. She may follow-up in the outpatient neurology clinic in 3-4 weeks. Her overall prognosis at this time remains guarded.
--- NOTE | 2016-09-15 08:35 | P.DS ---
Providers Date of admission: 09/13/16 14:54 Expected date of discharge: 09/14/16 Attending physician: Armando Zheng Consults: 09/13/16 14:55 Consult Physician Routine Consulting Provider: Yahaira Abdalla Consult Reason/Comments: cva Do you want consulting provider notified?: Yes Primary care physician: [facility] Course: 85-year-old female one of my office patient of known for last 15 years with known to have advanced osteoporosis severe osteoarthritis and chronic lower back pain severe debilitated from her back condition for the last 20 years could not tolerate many osteoporosis age and the past has been doing well on Fosamax and calcium with vitamin D. Patient is under a lot of stress lately still independent and live in her condo complex with 4 other neighbor she had a main entrance on. Everybody's working to create and build ramp for the building except 1 neighbor 1 to do more patient has been under a lot of stress through this. Patient apparently has loss her caregiver and higher new one was in today for the first time to see her patient had extremely difficult time expressing herself and finding the right word was slightly but confused and had significant change mental status the caregiver with the current finding decided to bring her to demurs department at [facility] were was seen and evaluated continue to have significant expression aphasia with the current problem was diagnosed with CVA/ TIA decided to admit patient to the hospital CAT scan of the brain showed small vessel disease only her blood pressure was slightly bit elevated initially but no other finding was found. No metabolic problem including UTI or pneumonitis no hypoxia or anything to explain that change mental status. 09/14: Patient has been seen in consultation by Dr. Abdalla with possible left hemispheric TIA versus stroke. MRI of the brain has been recommended and to continue aspirin therapy and monitor platelet counts. MRI of the brain and echocardiogram are pending. Triglycerides 42, cholesterol 161, LDL 58 and HDL 95. Due to patient's severe arthritis she was unable to tolerate laying flat for MRI and this was canceled and the CAT scan of the brain with contrast was ordered which came back negative for any acute findings. Patient was discharged home in stable condition. Discharge diagnoses: 1 TIA 2 metabolic encephalopathy secondary to TIA. 3 elevated blood pressure 4 advance osteoporosis 5 GERD 6 DVT prophylaxis 7 debility 8 thrombocytopenia 9 Gilbert"s syndrome Discharge plan: Return home Impression and plan of care have been directed as dictated by the signing physician. Niya Butterfield nurse practitioner acting as scribe for signing physician. Patient Condition at Discharge: Good Plan - Discharge Summary New Discharge Prescriptions: New Aspirin EC [Ecotrin Low Dose] 81 mg PO DAILY #30 tablet. Atorvastatin [Lipitor] 10 mg PO HS #30 tab Clopidogrel [Plavix] 75 mg PO DAILY #30 tablet Continue Raloxifene [Evista] 60 mg PO DAILY Alendronate Sodium 70 mg PO CONTRERAS Discharge Medication List Raloxifene [Evista] 60 mg PO DAILY 09/25/14 [History] Alendronate Sodium 70 mg PO CONTRERAS 09/13/16 [History] Aspirin EC [Ecotrin Low Dose] 81 mg PO DAILY #30 tablet. 09/14/16 [Rx] Atorvastatin [Lipitor] 10 mg PO HS #30 tab 09/14/16 [Rx] Clopidogrel [Plavix] 75 mg PO DAILY #30 tablet 09/14/16 [Rx] Follow up Appointment(s)/Referral(s): Yahaira Abdalla MD [STAFF PHYSICIAN] - 3 Weeks Armando Zheng MD [Primary Care Provider] - 1 Week Discharge Disposition: HOME WITH HOME HEALTH SERVICES
== END 2016-09-14 17:08 | disposition home health service (06) | DRG 69 ==
LOC: EC 13:20 → 6SEL 14:54
PROVIDERS: ADMIT Internal Medicine Geriatric Medicine; ATTEND Internal Medicine Geriatric Medicine
DX: G45.9 Transient cerebral ischemic attack, unspecified (principal); G93.41 Metabolic encephalopathy; R47.01 Aphasia; D69.6 Thrombocytopenia, unspecified; R13.10 Dysphagia, unspecified; M41.9 Scoliosis, unspecified; Z66 Do not resuscitate; E78.5 Hyperlipidemia, unspecified; E80.4 Gilbert syndrome; K21.9 Gastro-esophageal reflux disease without esophagitis; G89.29 Other chronic pain; R53.81 Other malaise; H40.9 Unspecified glaucoma; M81.0 Age-related osteoporosis without current pathological fracture; H26.9 Unspecified cataract; R29.702 NIHSS score 2; J45.909 Unspecified asthma, uncomplicated; I65.23 Occlusion and stenosis of bilateral carotid arteries; R03.0 Elevated blood-pressure reading, without diagnosis of hypertension; M19.90 Unspecified osteoarthritis, unspecified site; M54.5 Low back pain; K40.20 Bilateral inguinal hernia, without obstruction or gangrene, not specified as recurrent; R26.2 Difficulty in walking, not elsewhere classified; R53.1 Weakness; Z87.311 Personal history of (healed) other pathological fracture; Z88.2 Allergy status to sulfonamides; Z91.02 Food additives allergy status; Z80.49 Family history of malignant neoplasm of other genital organs; Z79.83 Long term (current) use of bisphosphonates; Z82.49 Family history of ischemic heart disease and other diseases of the circulatory system; Z80.9 Family history of malignant neoplasm, unspecified; Z63.79 Other stressful life events affecting family and household; Z87.891 Personal history of nicotine dependence; Z85.828 Personal history of other malignant neoplasm of skin; Z79.810 Long term (current) use of selective estrogen receptor modulators (SERMs)
CPT/HCPCS: 36415; 70450; 70460; 71020; 80053; 80061; 81001; 82550; 82553; 83735; 84100; 84484; 85025; 85610; 85730; 87086; 93005; 93306; 93880; 94760

== ENCOUNTER 2020-07-19 22:59 | Inpatient (IN) | payer MEDICARE, OTHER ==
[2020-07-19] MEDS ORDERED: SODIUM CHLORIDE 0.9% 1,000 ML IV STA (23:02)
--- NOTE | 2020-07-19 23:25 | XR ---
EXAMINATION TYPE: XR chest 1V DATE OF EXAM: 07/19/2020 COMPARISON: 02/02/2017 HISTORY: Weakness TECHNIQUE: Single view FINDINGS: Exam limited by the kyphotic deformity. There is blunting of the costophrenic angles with e vidence of infiltrate at both lung bases. Pulmonary vascularity difficult to evaluate because of the chest deformity. IMPRESSION: Limited exam shows infiltrates and pleural fluid at the lung bases which are new compared to old exam. Congestive heart failure is possible.
--- NOTE | 2020-07-19 23:46 | ED ---
Weakness HPI - General Stated complaint: weakness Time Seen by Provider: 07/19/20 23:01 Source: EMS, RN notes reviewed, old records reviewed Mode of arrival: EMS Limitations: no limitations - History of Present Illness Initial comments: This is a 9-year-old female is a poor story presented for increased weakness. Patient resents rales for severe weakness patient usually does have helped and people staying with her at the house but does not have anyone Toprol this weekend. Patient is a poor historian history obtained by EMS MD Complaint: generalized weakness, lack of energy, difficulty walking -: days(s) Location: generalized Severity: moderate Severity scale (1-10): 6 Consistency: constant Improves with: none Worsens with: none Context: recent illness, history of similar Associated Symptoms: confusion, loss of appetite - Related Data Home Medications Medication Instructions Recorded Confirmed Latanoprost Ophth [Xalatan 0.005%] 1 drops BOTH EYES HS 02/02/17 07/20/20 Loratadine [Claritin] 10 mg PO DAILY 07/20/20 07/20/20 Previous Rx's Medication Instructions Recorded Famotidine [Pepcid] 20 mg PO DAILY #30 tab 02/11/17 Allergies Allergy/AdvReac Type Severity Reaction Status Date / Time latanoprost [From Xalatan] AdvReac Unknown Verified 07/20/20 08:30 monosodium glutamate [MSG] AdvReac Nausea & Verified 07/20/20 08:30 Vomiting Sulfa (Sulfonamide AdvReac Nausea Verified 07/20/20 08:30 Antibiotics) environmental Allergy Unknown Uncoded 09/26/14 10:54 Review of Systems ROS Statement: Those systems with pertinent positive or pertinent negative responses have been documented in the HPI. ROS Other: All systems not noted in ROS Statement are negative. 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 javier cataracts . Past Anesthesia/Blood Transfusion Reactions: No Reported Reaction Additional Past Anesthesia/Blood Transfusion Reaction / Comment(s): "mildly clausterphobic" Past Psychological History: Unable to Obtain Smoking Status: Never smoker Past Alcohol Use History: Unable to Obtain Past Drug Use History: Unable to Obtain - Past Family History Mother Family Medical History: Cancer Additional Family Medical History / Comment(s): cervical cancer Father Family Medical History: Coronary Artery Disease (CAD), Myocardial Infarction ([place]) Additional Family Medical History / Comment(s): x3 mi's General Exam Limitations: altered mental status General appearance: alert, in no apparent distress, anxious, lethargic, in distress, cachectic Head exam: Present: atraumatic, normocephalic, normal inspection Eye exam: Present: normal appearance, PERRL, EOMI. Absent: scleral icterus, conjunctival injection, periorbital swelling ENT exam: Present: normal exam, mucous membranes moist Neck exam: Present: normal inspection. Absent: tenderness, meningismus, lymphadenopathy Respiratory exam: Present: normal lung sounds bilaterally. Absent: respiratory distress, wheezes, rales, rhonchi, stridor Cardiovascular Exam: Present: regular rate, normal rhythm, normal heart sounds. Absent: systolic murmur, diastolic murmur, rubs, gallop, clicks GI/Abdominal exam: Present: soft, normal bowel sounds. Absent: distended, tenderness, guarding, rebound, rigid Extremities exam: Present: normal inspection, full ROM, normal capillary refill. Absent: tenderness, pedal edema, joint swelling, calf tenderness Back exam: Present: normal inspection Neurological exam: Present: alert, oriented X3, CN II-XII intact Psychiatric exam: Present: normal affect, normal mood Skin exam: Present: warm, dry, intact, normal color. Absent: rash Course Vital Signs 07/19/20 07/20/20 07/20/20 23:00 01:34 07:28 Temperature 98.6 F 97.9 F 98.0 F Pulse Rate 81 90 66 Respiratory 18 16 16 Rate Blood Pressure 104/53 95/67 90/57 O2 Sat by Pulse 95 94 L 99 Oximetry - Reevaluation(s) Reevaluation #1: Medical record is reviewed Symptoms improved here significantly in the emergency room Patient informed results and questions answered - Consultations Consultation #1: Spoke with Dr. Zheng agrees to admit the patient EKG Findings - EKG Comments: EKG Findings:: EKG shows sinus rhythm 78 TX 160 QRS 106 QTc 437 Medical Decision Making - Medical Decision Making 89 female DF for evaluation of weakness patient found to be severely dehydrated uremic altered mental status with elevated troponin, patient remains altered here in the ER. Daniella for continued management - Lab Data Result diagrams: 07/21/20 05:55 07/23/20 03:30 Lab Results 07/19/20 07/19/20 07/19/20 Range/Units 23:44 23:44 23:44 WBC 10.2 (3.8-10.6) k/uL RBC 3.84 (3.80-5.40) m/uL Hgb 11.8 (11.4-16.0) gm/dL Hct 37.7 (34.0-46.0) % MCV 98.1 (80.0-100.0) fL MCH 30.7 (25.0-35.0) pg MCHC 31.3 (31.0-37.0) g/dL RDW 14.4 (11.5-15.5) % Plt Count 167 (150-450) k/uL MPV 9.3 Neutrophils % 86 % Lymphocytes % 4 % Monocytes % 8 % Eosinophils % 0 % Basophils % 0 % Neutrophils # 8.8 H (1.3-7.7) k/uL Lymphocytes # 0.4 L (1.0-4.8) k/uL Monocytes # 0.8 (0-1.0) k/uL Eosinophils # 0.0 (0-0.7) k/uL Basophils # 0.0 (0-0.2) k/uL Hypochromasia Marked Poikilocytosis Moderate Macrocytosis PT 12.4 H (9.0-12.0) sec INR 1.2 H (<1.2) APTT 22.7 (22.0-30.0) sec Sodium 131 L (137-145) mmol/L Potassium 5.7 H (3.5-5.1) mmol/L Chloride 93 L (98-107) mmol/L Carbon Dioxide 30 (22-30) mmol/L Anion Gap 8 mmol/L BUN 108 H* (7-17) mg/dL Creatinine 1.32 H (0.52-1.04) mg/dL Est GFR (CKD-EPI)AfAm 41 (>60 ml/min/1.73 sqM) Est GFR (CKD-EPI)NonAf 36 (>60 ml/min/1.73 sqM) BUN/Creatinine Ratio (12.00-20.00) Ratio Glucose 129 H (74-99) mg/dL Plasma Lactic Acid Dayne (0.7-2.0) mmol/L Calcium 8.0 L (8.4-10.2) mg/dL Phosphorus 5.7 H (2.5-4.5) mg/dL Magnesium 2.9 H (1.6-2.3) mg/dL Total Bilirubin 1.5 H (0.2-1.3) mg/dL AST 170 H (14-36) U/L ALT 379 H (4-34) U/L Alkaline Phosphatase 42 (38-126) U/L Troponin I (0.000-0.034) ng/mL Total Protein 5.9 L (6.3-8.2) g/dL Albumin 3.6 (3.5-5.0) g/dL Globulin (1.6-3.3) g/dL Albumin/Globulin Ratio (1.60-3.17) g/dL TSH 1.200 (0.465-4.680) mIU/L Urine Color Urine Appearance (Clear) Urine pH (5.0-8.0) Ur Specific [place] (1.001-1.035) Urine Protein (Negative) Urine Glucose (UA) (Negative) Urine Ketones (Negative) Urine Blood (Negative) Urine Nitrite (Negative) Urine Bilirubin (Negative) Urine Urobilinogen (<2.0) mg/dL Ur Leukocyte Esterase (Negative) Urine RBC (0-5) /hpf Urine WBC (0-5) /hpf Ur Squamous Epith Cells (0-4) /hpf Hyaline Casts (0-2) /lpf Urine Mucus (None) /hpf Coronavirus (PCR) (Not Detectd) 07/19/20 07/19/20 07/20/20 Range/Units 23:44 23:44 01:03 WBC (3.8-10.6) k/uL RBC (3.80-5.40) m/uL Hgb (11.4-16.0) gm/dL Hct (34.0-46.0) % MCV (80.0-100.0) fL MCH (25.0-35.0) pg MCHC (31.0-37.0) g/dL RDW (11.5-15.5) % Plt Count (150-450) k/uL MPV Neutrophils % % Lymphocytes % % Monocytes % % Eosinophils % % Basophils % % Neutrophils # (1.3-7.7) k/uL Lymphocytes # (1.0-4.8) k/uL Monocytes # (0-1.0) k/uL Eosinophils # (0-0.7) k/uL Basophils # (0-0.2) k/uL Hypochromasia Poikilocytosis Macrocytosis PT (9.0-12.0) sec INR (<1.2) APTT (22.0-30.0) sec Sodium (137-145) mmol/L Potassium (3.5-5.1) mmol/L Chloride (98-107) mmol/L Carbon Dioxide (22-30) mmol/L Anion Gap mmol/L BUN (7-17) mg/dL Creatinine (0.52-1.04) mg/dL Est GFR (CKD-EPI)AfAm (>60 ml/min/1.73 sqM) Est GFR (CKD-EPI)NonAf (>60 ml/min/1.73 sqM) BUN/Creatinine Ratio (12.00-20.00) Ratio Glucose (74-99) mg/dL Plasma Lactic Acid Dayne 1.1 (0.7-2.0) mmol/L Calcium (8.4-10.2) mg/dL Phosphorus (2.5-4.5) mg/dL Magnesium (1.6-2.3) mg/dL Total Bilirubin (0.2-1.3) mg/dL AST (14-36) U/L ALT (4-34) U/L Alkaline Phosphatase (38-126) U/L Troponin I 0.139 H* (0.000-0.034) ng/mL Total Protein (6.3-8.2) g/dL Albumin (3.5-5.0) g/dL Globulin (1.6-3.3) g/dL Albumin/Globulin Ratio (1.60-3.17) g/dL TSH (0.465-4.680) mIU/L Urine Color Urine Appearance (Clear) Urine pH (5.0-8.0) Ur Specific [place] (1.001-1.035) Urine Protein (Negative) Urine Glucose (UA) (Negative) Urine Ketones (Negative) Urine Blood (Negative) Urine Nitrite (Negative) Urine Bilirubin (Negative) Urine Urobilinogen (<2.0) mg/dL Ur Leukocyte Esterase (Negative) Urine RBC (0-5) /hpf Urine WBC (0-5) /hpf Ur Squamous Epith Cells (0-4) /hpf Hyaline Casts (0-2) /lpf Urine Mucus (None) /hpf Coronavirus (PCR) Not Detected (Not Detectd) 07/21/20 07/21/20 07/21/20 Range/Units 00:33 05:55 05:55 WBC 8.3 (3.8-10.6) k/uL RBC 3.54 L (3.80-5.40) m/uL Hgb 10.8 L (11.4-16.0) gm/dL Hct 35.4 (34.0-46.0) % MCV 99.8 (80.0-100.0) fL MCH 30.6 (25.0-35.0) pg MCHC 30.6 L (31.0-37.0) g/dL RDW 14.7 (11.5-15.5) % Plt Count 148 L (150-450) k/uL MPV 9.7 Neutrophils % % Lymphocytes % % Monocytes % % Eosinophils % % Basophils % % Neutrophils # (1.3-7.7) k/uL Lymphocytes # (1.0-4.8) k/uL Monocytes # (0-1.0) k/uL Eosinophils # (0-0.7) k/uL Basophils # (0-0.2) k/uL Hypochromasia Marked Poikilocytosis Moderate Macrocytosis Slight PT (9.0-12.0) sec INR (<1.2) APTT (22.0-30.0) sec Sodium 136 (137-145) mmol/L Potassium 5.4 (3.5-5.1) mmol/L Chloride 102 (98-107) mmol/L Carbon Dioxide 27.7 (22-30) mmol/L Anion Gap 6.30 mmol/L BUN 68.0 H (7-17) mg/dL Creatinine 0.9 (0.52-1.04) mg/dL Est GFR (CKD-EPI)AfAm 65.7 (>60 ml/min/1.73 sqM) Est GFR (CKD-EPI)NonAf 56.7 L (>60 ml/min/1.73 sqM) BUN/Creatinine Ratio 75.56 H (12.00-20.00) Ratio Glucose 98 (74-99) mg/dL Plasma Lactic Acid Dayne (0.7-2.0) mmol/L Calcium 7.1 L (8.4-10.2) mg/dL Phosphorus (2.5-4.5) mg/dL Magnesium (1.6-2.3) mg/dL Total Bilirubin 0.9 (0.2-1.3) mg/dL AST 113 H (14-36) U/L ALT 326 H (4-34) U/L Alkaline Phosphatase 41 (38-126) U/L Troponin I (0.000-0.034) ng/mL Total Protein 5.3 L (6.3-8.2) g/dL Albumin 3.50 L (3.5-5.0) g/dL Globulin 1.8 (1.6-3.3) g/dL Albumin/Globulin Ratio 1.94 (1.60-3.17) g/dL TSH (0.465-4.680) mIU/L Urine Color Yellow Urine Appearance Clear (Clear) Urine pH 5.5 (5.0-8.0) Ur Specific [place] 1.012 (1.001-1.035) Urine Protein Negative (Negative) Urine Glucose (UA) Negative (Negative) Urine Ketones Negative (Negative) Urine Blood Trace H (Negative) Urine Nitrite Negative (Negative) Urine Bilirubin Negative (Negative) Urine Urobilinogen <2.0 (<2.0) mg/dL Ur Leukocyte Esterase Negative (Negative) Urine RBC 1 (0-5) /hpf Urine WBC <1 (0-5) /hpf Ur Squamous Epith Cells 2 (0-4) /hpf Hyaline Casts 1 (0-2) /lpf Urine Mucus Few H (None) /hpf Coronavirus (PCR) (Not Detectd) 07/22/20 07/23/20 Range/Units 08:47 03:30 WBC (3.8-10.6) k/uL RBC (3.80-5.40) m/uL Hgb (11.4-16.0) gm/dL Hct (34.0-46.0) % MCV (80.0-100.0) fL MCH (25.0-35.0) pg MCHC (31.0-37.0) g/dL RDW (11.5-15.5) % Plt Count (150-450) k/uL MPV Neutrophils % % Lymphocytes % % Monocytes % % Eosinophils % % Basophils % % Neutrophils # (1.3-7.7) k/uL Lymphocytes # (1.0-4.8) k/uL Monocytes # (0-1.0) k/uL Eosinophils # (0-0.7) k/uL Basophils # (0-0.2) k/uL Hypochromasia Poikilocytosis Macrocytosis PT (9.0-12.0) sec INR (<1.2) APTT (22.0-30.0) sec Sodium 135 L 138 (137-145) mmol/L Potassium 5.2 H 5.6 H (3.5-5.1) mmol/L Chloride 103 106 (98-107) mmol/L Carbon Dioxide 26 24.2 (22-30) mmol/L Anion Gap 6 7.80 mmol/L BUN 55 H 40.0 H (7-17) mg/dL Creatinine 0.77 0.6 (0.52-1.04) mg/dL Est GFR (CKD-EPI)AfAm 79 93.7 (>60 ml/min/1.73 sqM) Est GFR (CKD-EPI)NonAf 69 80.8 (>60 ml/min/1.73 sqM) BUN/Creatinine Ratio 66.67 H (12.00-20.00) Ratio Glucose 134 H 113 H (74-99) mg/dL Plasma Lactic Acid Dayne (0.7-2.0) mmol/L Calcium 7.3 L 8.1 L (8.4-10.2) mg/dL Phosphorus (2.5-4.5) mg/dL Magnesium (1.6-2.3) mg/dL Total Bilirubin (0.2-1.3) mg/dL AST (14-36) U/L ALT (4-34) U/L Alkaline Phosphatase (38-126) U/L Troponin I (0.000-0.034) ng/mL Total Protein (6.3-8.2) g/dL Albumin (3.5-5.0) g/dL Globulin (1.6-3.3) g/dL Albumin/Globulin Ratio (1.60-3.17) g/dL TSH (0.465-4.680) mIU/L Urine Color Urine Appearance (Clear) Urine pH (5.0-8.0) Ur Specific [place] (1.001-1.035) Urine Protein (Negative) Urine Glucose (UA) (Negative) Urine Ketones (Negative) Urine Blood (Negative) Urine Nitrite (Negative) Urine Bilirubin (Negative) Urine Urobilinogen (<2.0) mg/dL Ur Leukocyte Esterase (Negative) Urine RBC (0-5) /hpf Urine WBC (0-5) /hpf Ur Squamous Epith Cells (0-4) /hpf Hyaline Casts (0-2) /lpf Urine Mucus (None) /hpf Coronavirus (PCR) (Not Detectd) - Radiology Data Radiology results: report reviewed (Chest x-ray is negative for acute disease), image reviewed Critical Care Time Critical Care Time: Yes Total Critical Care Time: 31 Disposition Clinical Impression: Weakness, Dehydration, Failure to thrive, Uremia, ARF (acute renal failure), Elevated troponin Disposition: ADMITTED IP TO THIS [facility] Condition: Fair Is patient prescribed a controlled substance at d/c from ED?: No
[2020-07-19 23:53] LABS: Basophils % (A) 0 %; Eosinophils % (A) 0 %; HCT 37.7 % (34.0-46.0); HGB 11.8 gm/dL (11.4-16.0); Hypochromasia Marked; Lymphocytes # (A) 0.4 k/uL (1.0-4.8); Lymphocytes % (A) 4 %; MCH 30.7 pg (25.0-35.0); MCHC 31.3 g/dL (31.0-37.0); MCV 98.1 fL (80.0-100.0); Mean Platelet Volume 9.3; Monocytes # (A) 0.8 k/uL (0-1.0); Monocytes % (A) 8 %; Neutrophils # (A) 8.8 k/uL (1.3-7.7); Neutrophils % (A) 86 %; Platelet Count 167 k/uL (150-450); Poikilocytosis Moderate; RBC 3.84 m/uL (3.80-5.40); RDW 14.4 % (11.5-15.5); WBC 10.2 k/uL (3.8-10.6)
[2020-07-20 00:09] LABS: INR 1.2 (<1.2); Partial Thromboplastin Time 22.7 sec (22.0-30.0); Prothrombin Time 12.4 sec (9.0-12.0)
[2020-07-20 00:11] LABS: Albumin 3.6 g/dL (3.5-5.0); Magnesium 2.9 mg/dL (1.6-2.3); Phosphorus 5.7 mg/dL (2.5-4.5); Potassium 5.7 mmol/L (3.5-5.1); Total Bilirubin 1.5 mg/dL (0.2-1.3); Total Protein 5.9 g/dL (6.3-8.2)
[2020-07-20] MEDS: SODIUM CHLORIDE 0.9% 1,000 ML IV SCH ×2 (02:11→13:29)
[2020-07-20] MEDS ORDERED: SODIUM CHLORIDE 0.9% 1,000 ML IV ONE (02:13)
[2020-07-20] MEDS ORDERED: SODIUM CHLORIDE 0.9% 500 ML 500 ML IV ONE (02:13)
--- NOTE | 2020-07-20 13:04 | P.HPIM ---
History of Present Illness H&P Date: 07/20/20 Chief Complaint: Weak HISTORY OF PRESENT ILLNESS This is an 89-year-old female patient of Dr. prieto, not seen in the office for approximately 3 years, history of severe osteoporosis, gastroesophageal reflux disease, seasonal ALLERGIES, glaucoma. Patient states that she is living alone but has paid caregivers that take care of her throughout the day. She was brought and by EMS due to concerns that there was no one to take care of her at home. She states she has not been drinking very much. She also has low pulse ox at home in the 50s. Patient presented to [facility] emergency center and found to be afebrile, heart rate 81, blood pressure 104/53, pulse ox 95% on 3 L nasal cannula. CBC was unremarkable. INR 1.2. Sodium 131, potassium 5.7, chloride 93, CO2 30, BUN 108 and creatinine 1.32. Blood sugar 129. Calcium 8, phosphorus 5.7, magnesium 2.9, total bilirubin 1.5, AST 170, ALT 379, alkaline phosphatase 42. Troponin 0.139. Coronavirus not detected study shows infiltrates and pleural fluid at the lung bases new. Congestive heart failure possible. REVIEW OF SYSTEMS Constitutional: No fever, no chills, no night sweats. No weight change. Reports weakness, reports chronic fatigue no lethargy. No daytime sleepiness. EENT: No headache. No blurred vision or double vision, no loss of vision. No loss of Hearing, no ringing in the ears, no dizziness. No nasal drainage or congestion. No epistaxis. No sore throat. Lungs: No shortness of breath, cough, no sputum production. No wheezing. Reports low pulse ox at home. Cardiovascular: No chest pain, no lower extremity edema. No palpitations. No paroxysmal nocturnal dyspnea. No orthopnea. No lightheadedness or dizziness. No syncopal episodes. Abdominal: No abdominal pain. No nausea, vomiting. No diarrhea. No constip ation. No bloody or tarry stools.. No loss of appetite. Genitourinary: No dysuria, increased frequency, urgency. No urinary retention. Musculoskeletal: No myalgias. No muscle weakness, no gait dysfunction, no frequent falls. No back pain. No neck pain. Integumentary: No wounds, no lesions. No rash or pruritus. No unusual bruising. No change in hair or nails. Neurologic: No aphasia. No facial droop. No change in mentation. No head injury. No headache. No paralysis. No paresthesia. Psychiatric: No depression. No anxiety. No mood swings. Endocrine: No abnormal blood sugars. No weight change. No excessive sweating or thirst. No cold intolerance. SOCIAL HISTORY Patient was a smoker of a half a pack per day for 38 years and quit in 1968. No alcohol use or illicit drug use. 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 She does not have any children. Patient has paid caregivers in her home FAMILY HISTORY Mother at age 84 from old age with history of osteoporosis and cervical cancer. Father at age 69 from a myocardial infarction. Patient has 1 brother that is passed at age 45 from alcohol abuse. Patient does not have any sisters and does not have any children. PHYSICAL EXAMINATION Gen: This is an 89-year-old thin cachectic appearing female. She is resting in the ER stretcher and appears to be comfortable. Staff member is feeding her breakfast. HEENT: Head is atraumatic, normocephalic. Pupils equal, round. Sclerae is anicteric. NECK: Supple. No JVD. No lymphadenopathy. No thyromegaly. LUNGS: Clear to auscultation. No wheezes or rhonchi. No intercostal retractions. Severe kyphosis HEART: Regular rate and rhythm. No murmur. ABDOMEN: Soft. Bowel sounds are present. No masses. No tenderness. EXTREMITIES: No pedal edema. No calf tenderness. NEUROLOGICAL: Patient is awake, alert and oriented x3. Cranial nerves 2 through 12 are grossly intact. ASSESSMENT AND PLAN 1. Acute kidney injury. Continue IV fluids 0.9 normal saline at 100 mL per hour, increase oral intake, repeat lab work in the morning. 2. Hyperkalemia secondary to acute kidney injury, recheck in the morning. 3. Severe osteoporosis and kyphosis. 4. Gastroesophageal reflux disease and GI prophylaxis. Continue Pepcid 20 mg daily. 5. Seasonal ALLERGIES. Continue Claritin 10 mg daily. 6. Glaucoma. Continue eyedrops. 7. DVT prophylaxis. Heparin subcu twice daily. 8. COVID-19 testing negative. Patient has been hospitalized during a pandemic. Patient will be admitted to the hospital for a minimum of 2 night stay. DISCHARGE PLAN PT, OT, manager social responsibility consult. Impression and plan of care have been directed as dictated by the signing physician. Niya Butterfield nurse practitioner acting as scribe for signing physician. Past Medical History Past Medical History: Asthma, Cancer, CVA/TIA, GI Bleed, Hyperlipidemia, Osteoarthritis (OA) Additional Past Medical History / Comment(s): Glaucoma javier eyes; osteoporosis and has "compression fx", had skin cancer (end of nose ), scoliosis, javier inguinal hernia's, tia, History of Any Multi-Drug Resistant Organisms: None Reported Additional Past Surgical History / Comment(s): pilondial cyst removed, 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 javier cataracts . Past Anesthesia/Blood Transfusion Reactions: No Reported Reaction Additional Past Anesthesia/Blood Transfusion Reaction / Comment(s): "mildly steven sterphobic" Past Psychological History: Unable to Obtain Smoking Status: Never smoker Past Alcohol Use History: Unable to Obtain Past Drug Use History: Unable to Obtain - Past Family History Mother Family Medical History: Cancer Additional Family Medical History / Comment(s): cervical cancer Father Family Medical History: Coronary Artery Disease (CAD), Myocardial Infarction ([place]) Additional Family Medical History / Comment(s): x3 mi's Medications and Allergies Home Medications Medication Instructions Recorded Confirmed Type Latanoprost Ophth [Xalatan 0.005%] 1 drops BOTH EYES HS 02/02/17 07/20/20 History Famotidine [Pepcid] 20 mg PO DAILY #30 tab 02/11/17 07/20/20 Rx Loratadine [Claritin] 10 mg PO DAILY 07/20/20 07/20/20 History Allergies Allergy/AdvReac Type Severity Reaction Status Date / Time latanoprost [From Xalatan] AdvReac Unknown Verified 07/20/20 08:30 monosodium glutamate [MSG] AdvReac Nausea & Verified 07/20/20 08:30 Vomiting Sulfa (Sulfonamide AdvReac Nausea Verified 07/20/20 08:30 Antibiotics) environmental Allergy Unknown Uncoded 09/26/14 10:54 Physical Exam Vitals: Vital Signs Temp Pulse Resp BP Pulse Ox 07/20/20 07:28 98.0 F 66 16 90/57 99 07/20/20 01:34 97.9 F 90 16 95/67 94 L 07/19/20 23:00 98.6 F 81 18 104/53 95 Intake and Output 07/19/20 07/20/20 07/20/20 22:59 06:59 14:59 Other: Weight 48.126 kg Results CBC & Chem 7: 07/19/20 23:44 07/19/20 23:44 Labs: Abnormal Lab Results - Last 24 Hours (Table) 07/19/20 07/19/20 07/19/20 Range/Units 23:44 23:44 23:44 Neutrophils # 8.8 H (1.3-7.7) k/uL Lymphocytes # 0.4 L (1.0-4.8) k/uL PT 12.4 H (9.0-12.0) sec INR 1.2 H (<1.2) Sodium 131 L (137-145) mmol/L Potassium 5.7 H (3.5-5.1) mmol/L Chloride 93 L (98-107) mmol/L BUN 108 H* (7-17) mg/dL Creatinine 1.32 H (0.52-1.04) mg/dL Glucose 129 H (74-99) mg/dL Calcium 8.0 L (8.4-10.2) mg/dL Phosphorus 5.7 H (2.5-4.5) mg/dL Magnesium 2.9 H (1.6-2.3) mg/dL Total Bilirubin 1.5 H (0.2-1.3) mg/dL AST 170 H (14-36) U/L ALT 379 H (4-34) U/L Troponin I (0.000-0.034) ng/mL Total Protein 5.9 L (6.3-8.2) g/dL 07/19/20 Range/Units 23:44 Neutrophils # (1.3-7.7) k/uL Lymphocytes # (1.0-4.8) k/uL PT (9.0-12.0) sec INR (<1.2) Sodium (137-145) mmol/L Potassium (3.5-5.1) mmol/L Chloride (98-107) mmol/L BUN (7-17) mg/dL Creatinine (0.52-1.04) mg/dL Glucose (74-99) mg/dL Calcium (8.4-10.2) mg/dL Phosphorus (2.5-4.5) mg/dL Magnesium (1.6-2.3) mg/dL Total Bilirubin (0.2-1.3) mg/dL AST (14-36) U/L ALT (4-34) U/L Troponin I 0.139 H* (0.000-0.034) ng/mL Total Protein (6.3-8.2) g/dL
[2020-07-20] MEDS: FAMOTIDINE 20 MG TAB PO SCH (13:26)
[2020-07-20] MEDS: LATANOPROST 0.005% OPHTH DROPS 2.5 ML BTL BOTH EYES SCH (21:15)
[2020-07-21 01:13] LABS: Appearance,Urine Clear (Clear); Bilirubin,Urine Negative (Negative); Blood,Urine Trace (Negative); Color,Urine Yellow; Glucose,Urine (UA) Negative (Negative); Hyaline Casts,Urine 1 /lpf (0-2); Ketones,Urine Negative (Negative); Leukocyte Esterase,Urine Negative (Negative); Mucus,Urine Few /hpf; Nitrite,Urine Negative (Negative); PH, Urine 5.5 (5.0-8.0); Protein,Urine Negative (Negative); RBC,Urine 1 /hpf (0-5); Specific Gravity,Urine 1.012 (1.001-1.035); Squamous Epithelial Cell,Urine 2 /hpf (0-4); Urobilinogen,Urine <2.0 mg/dL (<2.0); WBC,Urine <1 /hpf (0-5)
[2020-07-21] MEDS: SODIUM CHLORIDE 0.9% 1,000 ML IV SCH ×3 (02:39→14:13)
[2020-07-21 07:23] LABS: HCT 35.4 % (34.0-46.0); HGB 10.8 gm/dL (11.4-16.0); Hypochromasia Marked; MCH 30.6 pg (25.0-35.0); MCHC 30.6 g/dL (31.0-37.0); MCV 99.8 fL (80.0-100.0); Macrocytosis Slight; Mean Platelet Volume 9.7; Platelet Count 148 k/uL (150-450); Poikilocytosis Moderate; RBC 3.54 m/uL (3.80-5.40); RDW 14.7 % (11.5-15.5); WBC 8.3 k/uL (3.8-10.6)
[2020-07-21] MEDS: FAMOTIDINE 20 MG TAB PO SCH (08:13)
[2020-07-21] MEDS: LORATADINE 10 MG TAB PO SCH (08:13)
[2020-07-21 09:25] LABS: African American GFR (CKD) 65.7 (60.0-200.0); Albumin 3.5 g/dL (3.80-4.90); Albumin/Globulin Ratio 1.94 (1.60-3.17); Anion Gap 6.3 mmol/L (4.00-12.00); BUN/Creat Ratio 75.56 Ratio (12.00-20.00); Calcium 7.1 mg/dL (8.7-10.3); Carbon Dioxide 27.7 mmol/L (21.6-31.8); Globulin 1.8 g/dL (1.6-3.3); Non-African American GFR(CKD) 56.7 (60.0-200.0); Potassium 5.4 mmol/L (3.5-5.5); Total Bilirubin 0.9 mg/dL (0.2-1.2); Total Protein 5.3 g/dL (6.2-8.2)
--- NOTE | 2020-07-21 10:33 | P.PN ---
Subjective Progress Note Date: 07/21/20 HISTORY OF PRESENT ILLNESS This is an 89-year-old female patient of Dr. prieto, not seen in the office for approximately 3 years, history of severe osteoporosis, gastroesophageal reflux disease, seasonal ALLERGIES, glaucoma. Patient states that she is living alone but has paid caregivers that take care of her throughout the day. She was brought and by EMS due to concerns that there was no one to take care of her at home. She states she has not been drinking very much. She also has low pulse ox at home in the 50s. Patient presented to [facility] emergency center and found to be afebrile, heart rate 81, blood pressure 104/53, pulse ox 95% on 3 L nasal cannula. CBC was unremarkable. INR 1.2. Sodium 131, potassium 5.7, chloride 93, CO2 30, BUN 108 and creatinine 1.32. Blood sugar 129. Calcium 8, phosphorus 5.7, magnesium 2.9, total bilirubin 1.5, AST 170, ALT 379, alkaline phosphatase 42. Troponin 0.139. Coronavirus not detected study shows infiltrates and pleural fluid at the lung bases new. Congestive heart failure possible. 07/22: Patient states she is feeling better today from yesterday but not quite back to her baseline. Patient has been afebrile, heart rate 81, blood pressure 88/60, pulse ox 91% on 3 L nasal cannula. Repeat blood work reveals WBC 8.3, hemoglobin 10.8, platelet count 148. Sodium 136, potassium 5.4, chloride 102, CO2 27, BUN 68 and creatinine 0.9. Calcium 7.1. Total bilirubin 0.9, AST 113, ALT 326, alkaline phosphatase 42. Wants to go home and does not want to go to long term. She also does not want to participate with physical therapy. Discussed hospice option with her and she is going to think about things and make further determination. REVIEW OF SYSTEMS Constitutional: No fever, no chills, no night sweats. No weight change. Reports weakness, reports chronic fatigue no lethargy. No daytime sleepiness. EENT: No headache. No blurred vision or double vision, no loss of vision. No loss of Hearing, no ringing in the ears, no dizziness. No nasal drainage or con gestion. No epistaxis. No sore throat. Lungs: No shortness of breath, cough, no sputum production. No wheezing. Reports low pulse ox at home. Cardiovascular: No chest pain, no lower extremity edema. No palpitations. No paroxysmal nocturnal dyspnea. No orthopnea. No lightheadedness or dizziness. No syncopal episodes. Abdominal: No abdominal pain. No nausea, vomiting. No diarrhea. No con stipation. No bloody or tarry stools.. No loss of appetite. Genitourinary: No dysuria, increased frequency, urgency. No urinary retention. Musculoskeletal: No myalgias. Reports generalized muscle weakness, reports significant change in gait dysfunction, no frequent falls. No back pain. No neck pain. Integumentary: No wounds, no lesions. No rash or pruritus. No unusual bruising. No change in hair or nails. Neurologic: No aphasia. No facial droop. No change in mentation. No head injury. No headache. No paralysis. No paresthesia. Psychiatric: No depression. No anxiety. No mood swings. Endocrine: No abnormal blood sugars. No weight change. PHYSICAL EXAMINATION Gen: This is an 89-year-old thin cachectic appearing female. She is resting in the ER stretcher and appears to be comfortable. Staff member is feeding her breakfast. HEENT: Head is atraumatic, normocephalic. Pupils equal, round. Sclerae is anicteric. NECK: Supple. No JVD. No lymphadenopathy. No thyromegaly. LUNGS: Clear to auscultation. No wheezes or rhonchi. No intercostal retractions. Severe kyphosis HEART: Regular rate and rhythm. No murmur. ABDOMEN: Soft. Bowel sounds are present. No masses. No tenderness. EXTREMITIES: No pedal edema. No calf tenderness. NEUROLOGICAL: Patient is awake, alert and oriented x3. Cranial nerves 2 through 12 are grossly intact. ASSESSMENT AND PLAN 1. Acute kidney injury. Continue IV fluids 0.9 normal saline at 100 mL per hour, increase oral intake, repeat lab work in the morning. 2. Hyperkalemia secondary to acute kidney injury. 3. Severe osteoporosis and kyphosis. 4. Gastroesophageal reflux disease and GI prophylaxis. Continue Pepcid 20 mg daily. 5. Seasonal ALLERGIES. Continue Claritin 10 mg daily. 6. Glaucoma. Continue eyedrops. 7. DVT prophylaxis. Heparin subcu twice daily. 8. COVID-19 testing negative. Patient has been hospitalized during a pandemic. DISCHARGE PLAN PT, OT, social welfare administrator consult. Impression and plan of care have been directed as dictated by the signing physician. Niya Butterfield nurse practitioner acting as scribe for signing physician. Objective - Vital Signs Vital signs: Vital Signs Temp 97.6 F 07/21/20 05:20 Pulse 81 07/21/20 05:20 Resp 18 07/21/20 05:20 BP 88/60 07/21/20 05:20 Pulse Ox 91 L 07/21/20 05:20 Intake & Output 07/20/20 07/21/20 07/21/20 18:59 06:59 18:59 Intake Total 360 Balance 360 Weight 48.126 kg Intake: Oral 360 Other: Voiding Method Diaper Diaper # Voids 1 - Labs CBC & Chem 7: 07/21/20 05:55 07/21/20 05:55 Labs: Abnormal Lab Results - Last 24 Hours (Table) 07/21/20 07/21/20 Range/Units 00:33 05:55 RBC 3.54 L (3.80-5.40) m/uL Hgb 10.8 L (11.4-16.0) gm/dL MCHC 30.6 L (31.0-37.0) g/dL Plt Count 148 L (150-450) k/uL Urine Blood Trace H (Negative) Urine Mucus Few H (None) /hpf
[2020-07-21 13:43] VITALS: BMI 23.8
[2020-07-21] MEDS: LATANOPROST 0.005% OPHTH DROPS 2.5 ML BTL BOTH EYES SCH (23:52)
[2020-07-22] MEDS: SODIUM CHLORIDE 0.9% 1,000 ML IV SCH ×2 (05:20→08:47)
[2020-07-22] MEDS: FAMOTIDINE 20 MG TAB PO SCH (08:42)
[2020-07-22] MEDS: LORATADINE 10 MG TAB PO SCH (08:42)
[2020-07-22 09:35] LABS: African American GFR (CKD) 79 (>60 ml/min/1.73 sqM); Anion Gap 6 mmol/L; Blood Urea Nitrogen 55 mg/dL (7-17); Calcium 7.3 mg/dL (8.4-10.2); Carbon Dioxide 26 mmol/L (22-30); Chloride 103 mmol/L (98-107); Glucose 134 mg/dL (74-99); Non-African American GFR(CKD) 69 (>60 ml/min/1.73 sqM); Potassium 5.2 mmol/L (3.5-5.1); Sodium 135 mmol/L (137-145)
--- NOTE | 2020-07-22 11:01 | ECHOF ---
Referral Reason:LVF MEASUREMENTS -------- HEIGHT: 139.7 cm WEIGHT: 48.1 kg BP: 123/73 IVSd: 1.4 cm (0.6 - 1.1) LVIDd: 2.9 cm (3.9 - 5.3) LVPWd: 1.0 cm (0.6 - 1.1) EDV(Teich): 34 ml IVSs: 1.7 cm LVIDs: 1.5 cm LVPWs: 1.3 cm %IVS Thck: 23 % ESV(Teich): 7 ml EF(Teich): 80 % %FS: 48 % SV(Teich): 27 ml RVIDd: 3.9 cm (< 3.3) Ao Diam: 3.2 cm (2.0 - 3.7) AV Cusp: 2.0 cm (1.5 - 2.6) EPSS: 0.5 cm TR Vmax: 2.92 m/s TR maxP.18 mmHg RAP: 5.00 mmHg RVSP: 39.18 mmHg MV EF SLOPE: 61.12 mm/s (70 - 150) MV EXCURSION: 14.38 mm (> 18.000) FINDINGS -------- This was a technically difficult study with suboptimal apical views. The left ventricular size is normal. There is moderate concentric left ventricular hypertrophy. O verall left ventricular systolic function is normal with, an EF between 55 - 60 %. The right ventricle is severely enlarged. The left atrium is mildly dilated. The right atrium was not well visualized. The aortic valve is trileaflet and appears structurally normal. There is no evidence of aortic regu rgitation. There is no evidence of aortic stenosis. Mild mitral regurgitation is present. Fitf-to-yfczkhzm tricuspid regurgitation present. There is mild pulmonary hypertension. The right ventricular systolic pressure, as measured by Doppler, is 39.18mmHg. There is no pulmonic regurgitation present. There is no pericardial effusion. Large Pleural Effusion. CONCLUSIONS -------- 1. The left ventricular size is normal. 2. There is moderate concentric left ventricular hypertrophy. 3. Overall left ventricular systolic function is normal with, an EF between 55 - 60 %. 4. The right ventricle is severely enlarged. 5. The left atrium is mildly dilated. 6. Qawr-di-ucgybjgn tricuspid regurgitation present. 7. There is mild pulmonary hypertension. AGRICULTURAL REAL ESTATE AGENT: Johana Ace RDCS
--- NOTE | 2020-07-22 13:14 | P.PN ---
Subjective Progress Note Date: 07/22/20 HISTORY OF PRESENT ILLNESS This is an 89-year-old female patient of Dr. pireto, not seen in the office for approximately 3 years, history of severe osteoporosis, gastroesophageal reflux disease, seasonal ALLERGIES, glaucoma. Patient states that she is living alone but has paid caregivers that take care of her throughout the day. She was brought and by EMS due to concerns that there was no one to take care of her at home. She states she has not been drinking very much. She also has low pulse ox at home in the 50s. Patient presented to [facility] emergency center and found to be afebrile, heart rate 81, blood pressure 104/53, pulse ox 95% on 3 L nasal cannula. CBC was unremarkable. INR 1.2. Sodium 131, potassium 5.7, chloride 93, CO2 30, BUN 108 and creatinine 1.32. Blood sugar 129. Calcium 8, phosphorus 5.7, magnesium 2.9, total bilirubin 1.5, AST 170, ALT 379, alkaline phosphatase 42. Troponin 0.139. Coronavirus not detected study shows infiltrates and pleural fluid at the lung bases new. Congestive heart failure possible. 07/21: Patient states she is feeling better today from yesterday but not quite back to her baseline. Patient has been afebrile, heart rate 81, blood pressure 88/60, pulse ox 91% on 3 L nasal cannula. Repeat blood work reveals WBC 8.3, hemoglobin 10.8, platelet count 148. Sodium 136, potassium 5.4, chloride 102, CO2 27, BUN 68 and creatinine 0.9. Calcium 7.1. Total bilirubin 0.9, AST 113, ALT 326, alkaline phosphatase 42. Wants to go home and does not want to go to snf. She also does not want to participate with physical therapy. Discussed hospice option with her and she is going to think about things and make further determination. 07/22: Patient is seen today in follow-up. She is stating that her guardian Yasmeen is coming tomorrow to meet with her in the hospital and she does not want to go home until this is taken care of. Patient has been afebrile, heart rate 83, blood pressure 117/72, pulse ox 93% on 4 L nasal cannula. Repeat blood work reveals sodium 135, potassium 5.2, chloride 103, CO2 26, BUN 55 and creatinine 0.77. IV fluids will be discontinued and changed to saline lock. We will plan for discharge after patient meets with her guardian tomorrow. Patient is very anxious about discharging is unsure of the discharge plan does not feel comfortable making decisions. REVIEW OF SYSTEMS Constitutional: No fever, no chills, no night sweats. No weight change. Reports weakness, reports chronic fatigue no lethargy. No daytime sleepiness. EENT: No headache. No blurred vision or double vision, no loss of vision. No loss of Hearing, no ringing in the ears, no dizziness. No nasal drainage or congestion. No epistaxis. No sore throat. Lungs: No shortness of breath, cough, no sputum production. No wheezing. Reports low pulse ox at home. Cardiovascular: No chest pain, no lower extremity edema. No palpitations. No paroxysmal nocturnal dyspnea. No orthopnea. No lightheadedness or dizziness. No syncopal episodes. Abdominal: No abdominal pain. No nausea, vomiting. No diarrhea. No constipation. No bloody or tarry stools.. No loss of appetite. Genitourinary: No dysuria, increased frequency, urgency. No urinary retention. Musculoskeletal: No myalgias. Reports generalized muscle weakness, reports significant change in gait dysfunction, no frequent falls. No back pain. No neck pain. Integumentary: No wounds, no lesions. No rash or pruritus. No unusual bruising. No change in hair or nails. Neurologic: No aphasia. No facial droop. No change in mentation. No head injury. No headache. No paralysis. No paresthesia. Psychiatric: No depression. Noted anxiety. No mood swings. Endocrine: No abnormal blood sugars. No weight change. PHYSICAL EXAMINATION Gen: This is an 89-year-old thin cachectic appearing female. She is resting in the ER stretcher and appears to be comfortable. Staff member is feeding her breakfast. HEENT: Head is atraumatic, normocephalic. Pupils equal, round. Sclerae is anicteric. NECK: Supple. No JVD. No lymphadenopathy. No thyromegaly. LUNGS: Clear to auscultation. No wheezes or rhonchi. No intercostal retractions. Severe kyphosis HEART: Regular rate and rhythm. No murmur. ABDOMEN: Soft. Bowel sounds are present. No masses. No tenderness. EXTREMITIES: No pedal edema. No calf tenderness. NEUROLOGICAL: Patient is awake, alert and oriented x3. Cranial nerves 2 through 12 are grossly intact. ASSESSMENT AND PLAN 1. Acute kidney injury. Discontinue IV fluid, increase oral intake. 2. Hyperkalemia secondary to acute kidney injury. 3. Severe osteoporosis and kyphosis. 4. Gastroesophageal reflux disease and GI prophylaxis. Continue Pepcid 20 mg daily. 5. Seasonal ALLERGIES. Continue Claritin 10 mg daily. 6. Glaucoma. Continue eyedrops. 7. DVT prophylaxis. Heparin subcu twice daily. 8. COVID-19 testing negative. Patient has been hospitalized during a pandemic. DISCHARGE PLAN PT, OT, social insurance analyst consult. Most likely home tomorrow. Impression and plan of care have been directed as dictated by the signing physician. Niya Butterfield nurse practitioner acting as scribe for signing physician. Objective - Vital Signs Vital signs: Vital Signs Temp 97.6 F 07/22/20 05:00 Pulse 93 07/22/20 05:00 Resp 16 07/22/20 05:00 BP 123/73 07/22/20 05:00 Pulse Ox 90 L 07/22/20 05:00 Intake & Output 07/21/20 07/22/20 07/22/20 18:59 06:59 18:59 Output Total 400 Balance -400 Weight 48.126 kg 61 kg Output: Urine 400 Other: Voiding Method Diaper Diaper # Bowel Movements 1 - Labs CBC & Chem 7: 07/21/20 05:55 07/22/20 08:47 Labs: Abnormal Lab Results - Last 24 Hours (Table) 07/21/20 Range/Units 05:55 BUN 68.0 H (9.0-27.0) mg/dL Est GFR (CKD-EPI)NonAf 56.7 L (60.0-200.0) BUN/Creatinine Ratio 75.56 H (12.00-20.00) Ratio Calcium 7.1 L (8.7-10.3) mg/dL AST 113 H (13-35) U/L ALT 326 H (8-44) U/L Total Protein 5.3 L (6.2-8.2) g/dL Albumin 3.50 L (3.80-4.90) g/dL
[2020-07-22] MEDS: LATANOPROST 0.005% OPHTH DROPS 2.5 ML BTL BOTH EYES SCH (20:27)
--- NOTE | 2020-07-23 07:26 | P.DS ---
Providers Date of admission: 07/20/20 00:28 Expected date of discharge: 07/23/20 Attending physician: Armando Zheng [facility] Course: HISTORY OF PRESENT ILLNESS This is an 89-year-old female patient of Dr. Zheng, not seen in the office for approximately 3 years, history of severe osteoporosis, gastroesophageal reflux disease, seasonal ALLERGIES, glaucoma. Patient states that she is living alone but has paid caregivers that take care of her throughout the day. She was brought and by EMS due to concerns that there was no one to take care of her at home. She states she has not been drinking very much. She also has low pulse ox at home in the 50s. Patient presented to [facility] emergency center and found to be afebrile, heart rate 81, blood pressure 104/53, pulse ox 95% on 3 L nasal cannula. CBC was unremarkable. INR 1.2. Sodium 131, potassium 5.7, chloride 93, CO2 30, BUN 108 and creatinine 1.32. Blood sugar 129. Calcium 8, phosphorus 5.7, magnesium 2.9, total bilirubin 1.5, AST 170, ALT 379, alkaline phosphatase 42. Troponin 0.139. Coronavirus not detected study shows infiltrates and pleural fluid at the lung bases new. Congestive heart failure possible. 07/21: Patient states she is feeling better today from yesterday but not quite back to her baseline. Patient has been afebrile, heart rate 81, blood pressure 88/60, pulse ox 91% on 3 L nasal cannula. Repeat blood work reveals WBC 8.3, hemoglobin 10.8, platelet count 148. Sodium 136, potassium 5.4, chloride 102, CO2 27, BUN 68 and creatinine 0.9. Calcium 7.1. Total bilirubin 0.9, AST 113, ALT 326, alkaline phosphatase 42. Wants to go home and does not want to go to jail. She also does not want to participate with physical therapy. Discussed hospice option with her and she is going to think about things and make further determination. 07/22: Patient is seen today in follow-up. She is stating that her guardian Yasmeen is coming tomorrow to meet with her in the hospital and she does not want to go home until this is taken care of. Patient has been afebrile, heart rate 83, blood pressure 117/72, pulse ox 93% on 4 L nasal cannula. Repeat blood work reveals sodium 135, potassium 5.2, chloride 103, CO2 26, BUN 55 and creatinine 0.77. IV fluids will be discontinued and changed to saline lock. We will plan for discharge after patient meets with her guardian tomorrow. Patient is very anxious about discharging is unsure of the discharge plan does not feel comfortable making decisions. 07/23: Patient has been afebrile, heart rate 91, blood pressure 145/72, pulse ox 96% on 4 L nasal cannula. IV fluids were discontinued yesterday. Repeat lab work today reveals sodium 138, potassium 5.6 and one dose of Kayexalate ordered, chloride 106, CO2 24, BUN 40 creatinine 0.6. Calcium 8.1. Patient has refused to work with physical therapy and occupational therapy. LARISSABoone Arana will be here today. Patient is stating that her money is running out for paid caregivers and states no one is available. Patient to discuss with family today and case manager specialist will be involved. ASSESSMENT AND PLAN 1. Acute kidney injury. 2. Hyperkalemia secondary to acute kidney injury. 3. Severe osteoporosis and kyphosis. 4. Gastroesophageal reflux disease. 5. Seasonal ALLERGIES. 6. Glaucoma. 7. Chronic hypoxic respiratory failure requiring home oxygen therapy secondary to severe scoliosis and decreased lung volumes. 8. COVID-19 testing negative. Patient has been hospitalized during a pandemic. DISCHARGE PLAN Home with [facility]. The patient is appropriate for hospice care if she is in agreement. Impression and plan of care have been directed as dictated by the signing physician. Niya Butterfield nurse practitioner acting as scribe for signing physician. Patient Condition at Discharge: Good Plan - Discharge Summary Discharge Rx Participant: No New Discharge Prescriptions: Continue Latanoprost Ophth [Xalatan 0.005%] 1 drops BOTH EYES HS Famotidine [Pepcid] 20 mg PO DAILY #30 tab Loratadine [Claritin] 10 mg PO DAILY Discharge Medication List Latanoprost Ophth [Xalatan 0.005%] 1 drops BOTH EYES HS 02/02/17 [History] Famotidine [Pepcid] 20 mg PO DAILY #30 tab 02/11/17 [Rx] Loratadine [Claritin] 10 mg PO DAILY 07/20/20 [History] Follow up Appointment(s)/Referral(s): [facility], [NON-STAFF] - 1 Week Armando Zheng MD [Primary Care Provider] - 1 Week Discharge Disposition: HOME WITH HOME HEALTH SERVICES
[2020-07-23] MEDS: FAMOTIDINE 20 MG TAB PO SCH (09:11)
[2020-07-23] MEDS: LORATADINE 10 MG TAB PO SCH (09:11)
[2020-07-23 10:38] LABS: African American GFR (CKD) 93.7 (60.0-200.0); Anion Gap 7.8 mmol/L (4.00-12.00); BUN/Creat Ratio 66.67 Ratio (12.00-20.00); Calcium 8.1 mg/dL (8.7-10.3); Carbon Dioxide 24.2 mmol/L (21.6-31.8); Non-African American GFR(CKD) 80.8 (60.0-200.0); Potassium 5.6 mmol/L (3.5-5.5)
[2020-07-23] MEDS ORDERED: SODIUM POLYSTYRENE SULFONATE 15 GM/60 ML BOTTLE PO STA (12:39)
[2020-07-23] MEDS: LATANOPROST 0.005% OPHTH DROPS 2.5 ML BTL BOTH EYES SCH (20:43)
[2020-07-24] MEDS: FAMOTIDINE 20 MG TAB PO SCH (08:50)
[2020-07-24] MEDS: LORATADINE 10 MG TAB PO SCH (08:50)
--- NOTE | 2020-07-24 10:11 | P.PN ---
Subjective Progress Note Date: 07/23/20 HISTORY OF PRESENT ILLNESS This is an 89-year-old female patient of Dr. prieto, not seen in the office for approximately 3 years, history of severe osteoporosis, gastroesophageal reflux disease, seasonal ALLERGIES, glaucoma. Patient states that she is living alone but has paid caregivers that take care of her throughout the day. She was brought and by EMS due to concerns that there was no one to take care of her at home. She states she has not been drinking very much. She also has low pulse ox at home in the 50s. Patient presented to [facility] emergency center and found to be afebrile, heart rate 81, blood pressure 104/53, pulse ox 95% on 3 L nasal cannula. CBC was unremarkable. INR 1.2. Sodium 131, potassium 5.7, chloride 93, CO2 30, BUN 108 and creatinine 1.32. Blood sugar 129. Calcium 8, phosphorus 5.7, magnesium 2.9, total bilirubin 1.5, AST 170, ALT 379, alkaline phosphatase 42. Troponin 0.139. Coronavirus not detected study shows infiltrates and pleural fluid at the lung bases new. Congestive heart failure possible. 07/21: Patient states she is feeling better today from yesterday but not quite back to her baseline. Patient has been afebrile, heart rate 81, blood pressure 88/60, pulse ox 91% on 3 L nasal cannula. Repeat blood work reveals WBC 8.3, hemoglobin 10.8, platelet count 148. Sodium 136, potassium 5.4, chloride 102, CO2 27, BUN 68 and creatinine 0.9. Calcium 7.1. Total bilirubin 0.9, AST 113, ALT 326, alkaline phosphatase 42. Wants to go home and does not want to go to jail. She also does not want to participate with physical therapy. Discussed hospice option with her and she is going to think about things and make further determination. 07/22: Patient is seen today in follow-up. She is stating that her guardian Yasmeen is coming tomorrow to meet with her in the hospital and she does not want to go home until this is taken care of. Patient has been afebrile, heart rate 83, blood pressure 117/72, pulse ox 93% on 4 L nasal cannula. Repeat blood work reveals sodium 135, potassium 5.2, chloride 103, CO2 26, BUN 55 and creatinine 0.77. IV fluids will be discontinued and changed to saline lock. We will plan for discharge after patient meets with her guardian tomorrow. Patient is very anxious about discharging is unsure of the discharge plan does not feel comfortable making decisions. 07/23: Patient has been afebrile, heart rate 91, blood pressure 145/72, pulse ox 96% on 4 L nasal cannula. IV fluids were discontinued yesterday. Repeat lab work today reveals sodium 138, potassium 5.6 and one dose of Kayexalate ordered, chloride 106, CO2 24, BUN 40 creatinine 0.6. Calcium 8.1. Patient has refused to work with physical therapy and occupational therapy. LUNA Arana will be here today. Patient is stating that her money is running out for paid caregivers and states no one is available. Patient to discuss with family today and nurse case manager will be involved. Patient was not discharged as planned and referral was placed to [facility]. Patient is being evaluated. Patient qualifies for home oxygen therapy secondary to heart failure restrictive lung disease mostly because of severe scoliosis and kyphosis. REVIEW OF SYSTEMS Constitutional: No fever, no chills, no night sweats. No weight change. Reports weakness, reports chronic fatigue no lethargy. No daytime sleepiness. EENT: No headache. No blurred vision or double vision, no loss of vision. No loss of Hearing, no ringing in the ears, no dizziness. No nasal drainage or congestion. No epistaxis. No sore throat. Lungs: No shortness of breath, cough, no sputum production. No wheezing. Reports low pulse ox at home. Cardiovascular: No chest pain, no lower extremity edema. No palpitations. No paroxysmal nocturnal dyspnea. No orthopnea. No lightheadedness or dizziness. No syncopal episodes. Abdominal: No abdominal pain. No nausea, vomiting. No diarrhea. No const ipation. No bloody or tarry stools.. No loss of appetite. Genitourinary: No dysuria, increased frequency, urgency. No urinary retention. Musculoskeletal: No myalgias. Reports generalized muscle weakness, reports significant change in gait dysfunction, no frequent falls. No back pain. No neck pain. Integumentary: No wounds, no lesions. No rash or pruritus. No unusual bruising. No change in hair or nails. Neurologic: No aphasia. No facial droop. No change in mentation. No head injury. No headache. No paralysis. No paresthesia. Psychiatric: No depression. Noted anxiety. No mood swings. Endocrine: No abnormal blood sugars. No weight change. PHYSICAL EXAMINATION Gen: This is an 89-year-old thin cachectic appearing female. She is resting in bed and appears to be comfortable. HEENT: Head is atraumatic, normocephalic. Pupils equal, round. Sclerae is ani cteric. NECK: Supple. No JVD. No lymphadenopathy. No thyromegaly. LUNGS: Clear to auscultation. No wheezes or rhonchi. No intercostal retractions. Severe kyphosis HEART: Regular rate and rhythm. No murmur. ABDOMEN: Soft. Bowel sounds are present. No masses. No tenderness. EXTREMITIES: No pedal edema. No calf tenderness. NEUROLOGICAL: Patient is awake, alert and oriented x3. Cranial nerves 2 through 12 are grossly intact. ASSESSMENT AND PLAN 1. Acute kidney injury. Discontinue IV fluid, increase oral intake. 2. Hyperkalemia secondary to acute kidney injury. 3. Severe osteoporosis and kyphosis. 4. Gastroesophageal reflux disease and GI prophylaxis. Continue Pepcid 20 mg daily. 5. Seasonal ALLERGIES. Continue Claritin 10 mg daily. 6. Glaucoma. Continue eyedrops. 7. DVT prophylaxis. Heparin subcu twice daily. 8. COVID-19 testing negative. Patient has been hospitalized during a pandemic. DISCHARGE PLAN PT, OT, weigh and charge worker consult. Most likely home tomorrow. Impression and plan of care have been directed as dictated by the signing physician. Niya Butterfield nurse practitioner acting as scribe for signing jaki mane. Objective - Vital Signs Vital signs: Vital Signs Temp 98.1 F 07/24/20 04:55 Pulse 93 07/24/20 04:55 Resp 20 07/24/20 04:55 BP 98/64 07/24/20 04:55 Pulse Ox 98 07/24/20 04:55 Intake & Output 07/23/20 07/24/20 07/24/20 18:59 06:59 18:59 Intake Total 600 Output Total 800 Balance -200 Weight 56.5 kg Intake: Oral 600 Output: Urine 800 Other: Voiding Method Diaper Diaper External Catheter Incontinent External Catheter - Labs CBC & Chem 7: 07/21/20 05:55 07/23/20 03:30 Labs: Abnormal Lab Results - Last 24 Hours (Table) 07/23/20 Range/Units 03:30 Potassium 5.6 H (3.5-5.5) mmol/L BUN 40.0 H (9.0-27.0) mg/dL BUN/Creatinine Ratio 66.67 H (12.00-20.00) Ratio Glucose 113 H (70-110) mg/dL Calcium 8.1 L (8.7-10.3) mg/dL
[2020-07-24 13:20] VITALS: BP 119/76; PULSE 87; RESP 19; TEMP 98
== END 2020-07-24 19:45 | disposition hospice, inpatient (51) | DRG 683 ==
LOC: EC 22:59 → 4SSUR 07-20 00:28 → 5NMEDONC 07-20 09:19 → OBSVTOIN 07-23 08:51 → 5NMEDONC 07-24 00:19
PROVIDERS: ADMIT Internal Medicine Geriatric Medicine; ATTEND Internal Medicine Geriatric Medicine
DX: N17.9 Acute kidney failure, unspecified (principal); I50.32 Chronic diastolic (congestive) heart failure; J96.11 Chronic respiratory failure with hypoxia; R64 Cachexia; M80.88XA Other osteoporosis with current pathological fracture, vertebra(e), initial encounter for fracture; E44.0 Moderate protein-calorie malnutrition; R62.7 Adult failure to thrive; Z20.822 Contact with and (suspected) exposure to COVID-19; Z51.5 Encounter for palliative care; E78.5 Hyperlipidemia, unspecified; E86.0 Dehydration; E87.5 Hyperkalemia; H40.9 Unspecified glaucoma; J45.909 Unspecified asthma, uncomplicated; J98.4 Other disorders of lung; K21.9 Gastro-esophageal reflux disease without esophagitis; M41.9 Scoliosis, unspecified; Z80.49 Family history of malignant neoplasm of other genital organs; Z82.49 Family history of ischemic heart disease and other diseases of the circulatory system; Z82.62 Family history of osteoporosis; Z85.828 Personal history of other malignant neoplasm of skin; Z86.73 Personal history of transient ischemic attack (TIA), and cerebral infarction without residual deficits; Z87.891 Personal history of nicotine dependence; Z98.42 Cataract extraction status, left eye; Z66 Do not resuscitate; Z98.41 Cataract extraction status, right eye; K40.20 Bilateral inguinal hernia, without obstruction or gangrene, not specified as recurrent; F40.240 Claustrophobia; Z60.2 Problems related to living alone; Z81.1 Family history of alcohol abuse and dependence; R77.8 Other specified abnormalities of plasma proteins; L89.321 Pressure ulcer of left buttock, stage 1; L89.311 Pressure ulcer of right buttock, stage 1; Z68.27 Body mass index [BMI] 27.0-27.9, adult
CPT/HCPCS: 36415; 71045; 80048; 80053; 81001; 83605; 83735; 84100; 84443; 84484; 85025; 85027; 85610; 85730; 87635; 93005; 93306; 94760; 96360; 99285